=== PATIENT | male | born 1990 | race Caucasian/White ===

== ENCOUNTER 2024-12-23 13:22 | Inpatient (IN) | payer OTHER, SELFPAY ==
[2024-12-23] VITALS (14 sets, daily range): BP systolic 85–142; BP diastolic 68–78; BMI 22.5
[2024-12-23 09:48] LABS: Hematocrit 42.2 % (39.0-52.0); Hemoglobin 14.6 g/dL (13.0-18.0); Mean Corp Hgb Conc. 34.6 g/dL (33.0-37.0); Mean Corpuscular Volume 82.1 fL (80.0-94.0); Nucleated Red Blood Cells % 0 % (-); Platelet Count 163 10^3/uL (130-400); Red Cell Dist. Width 12.6 % (11.5-14.5)
[2024-12-23 09:54] LABS: ALT (SGPT) 35 U/L (0-50); AST (SGOT) 28 U/L (17-59); Albumin 4.2 g/dl (3.5-5.0); Alkaline Phosphatase 54 U/L (38-126); Blood Urea Nitrogen 16 mg/dl (9-20); Calcium 8.9 mg/dl (8.4-10.2); Carbon Dioxide 29 mmol/L (22-30); Chloride 102 mmol/L (98-107); Estimated Creatinine Clearance > 125 ml/min; Glucose 98 mg/dl (70-99); Potassium 3.8 mmol/L (3.5-5.1); Sodium 137 mmol/L (135-145); Total Protein 6.9 g/dl (6.3-8.2); eGFR > 60.00
[2024-12-23 09:57] LABS: COVID-19 Antigen Negative (Negative)
--- NOTE | 2024-12-23 10:04 | ED.GENMED ---
History of Present Illness
<Julio C Obrien MD, Resident - Last Filed: 12/23/24 13:32>
General
Chief Complaint: Dizziness
Source: patient
Exam Limitations: none
Time Seen by Provider: 12/23/24 09:48
Nursing documentation reviewed up to this point in time: agreed with
History of Present Illness
History of Present Illness:
This is a 34-year-old male with history of Lyme disease arrives via EMS from home with complaints of not feeling well. Family reported that he developed flulike symptoms on Sunday which were progressively getting worse and when he woke up today
in the morning he felt lightheaded and family noticed that he was pale. Spouse also informed me that he has been in the bed over the weekend because of the ongoing sinus symptoms and he is complaining of multiple joint pain and tingling in
bilateral arms. Ongoing coughing. Denies any chest pain or trouble breathing. Family believes that he is very tired and lethargic. There was some subjective fever however there is no documented fevers.
Past History
<Julio C Obrien MD, Resident - Last Filed: 12/23/24 13:32>
Past History
ED Past Medical History: Other (Lyme disease)
ED Past Surgical History: None
Patient has exhibited threatening behavior?: No
Social History
Tobacco: Non-smoker
Family History
Family History: Other (Noncontributory)
Review of Systems
<Julio C Obrien MD, Resident - Last Filed: 12/23/24 13:32>
Review of Systems
Constitutional: Reports fever and fatigue; Denies night sweats or chills
EENT: Denies sore throat
Respiratory: Reports cough and trouble breathing
Cardiac: Denies chest pain or palpitations
ABD/GI: Denies abdominal pain or diarrhea
: Denies dysuria
Musculoskeletal: Reports joint pain, muscle pain and back pain
Skin: Denies itching
Neurological: Reports other (Generalized weakness); Denies dizzy
Endocrine: Denies polyuria
Phy Exam
<Julio C Obrien MD, Resident - Last Filed: 12/23/24 13:32>
General Physical Exam
General Presentation: other (Ill-appearing)
General age: appears stated age
General Skin: warm
General Habitus: normal
General Mental: alert
General Hydration: appears well hydrated
Cardiovascular Exam
Cardiovascular Exam: regular rate/rhythm and no murmur
Pulmonary Exam
Pulmonary Exam: lungs clear, no respiratory distress and no wheezing
Gastrointestinal Exam
Gastrointestinal Exam: non tender, soft and non distended
Musculoskeletal Exam
Musculoskeletal Exam: full ROM and neuro vasc intact
Course
<Julio C Obrien MD, Resident - Last Filed: 12/23/24 13:32>
Orders/Labs/Results
Orders:
Orders
12/23/24 09:29
EKG [Electrocardiogram (*1)] Urgent
Reason for Study: Vertigo / Dizzy
EKG- Treatment ONCE
12/23/24 09:34
COVID-19 Antigen Urgent
Source: Nasal Swab
Complete Blood Count/With Diff Urgent
Comprehensive Metabolic Panel Urgent
Creatine Phosphokinase Urgent
Comment: ADD
NT-proBNP Urgent
Comment: ADD
Influenza A+B Rapid Molecular Urgent
LUIS Source: Nasal Swab
Specimen Description:
12/23/24 09:45
Blood Culture Q20M
LUIS Source: Blood/Venous
Specimen Description:
Comment: Urgent from separate sites. If patient screens positive for possible sepsis
CR Chest - 2 Views Urgent
Comment:
Reason For Exam: suspected infection
12/23/24 09:47
Lactic Acid Q4H
Comment: ON ICE, CANCEL 2ND ORDER IF FIRST LACTIC ACID LEVEL <2
Blood Culture Q20M
LUIS Source: Blood/Venous
Specimen Description:
Comment: Urgent from separate sites. If patient screens positive for possible sepsis
12/23/24 09:58
Add On- LAB Urgent
Tests Added?: CPK
Add On- LAB Urgent
Tests Added?: CPK, BNP, TROP
12/23/24 09:59
0.9% Sodium Chloride 1000 ml [Nss] 1,000 ml IV BOLUS
Ketorolac [Toradol] 15 mg IV NOW STA
Ondansetron Injectable [Zofran] 4 mg IV NOW STA
12/23/24 11:57
Oseltamivir Phosphate [Tamiflu] 75 mg PO NOW STA
12/23/24 12:01
NEUROLOGY CONSULT Urgent
Consulting Provider: Coy Castro
Was physician already notified: Yes
12/23/24 12:04
CSF Cell Count Stat
CSF Cell Count Urgent
CSF Tube Number: 1
Comment: Tube #1
Spinal Fluid Glucose Urgent
Spinal Fluid Protein Urgent
CSF Culture with Gram Stain Urgent
LUIS Source: Csf
Specimen Description:
Gram Stain Stat
LUIS Source: Csf
Specimen Description:
Meningitis Panel, CSF by PCR Urgent
LUIS Source: Csf
Specimen Description:
12/23/24 12:06
EKG [Electrocardiogram (*1)] Stat
Reason for Study: Shortness of Breath
12/23/24 12:07
EKG- Treatment ONCE
12/23/24 12:08
CT Chest PE Study Urgent
Comment:
Reason For Exam: sob
12/23/24 13:01
Admit/Transfer Patient As Directed
Co-Sign Provider:
Level of Care: Inpatient admission
Assign to:: Medical/Surgical
Physician / Group: elida
Diagnosis: influenza/Concern for GBS
Reason for Hospitalization: Influenza
conern for GBS
Expected length of stay greater than two midnights?: Yes
ELOS- Estimated Length of Stay in days: 3
I certify the patient meets the requirements for IP care: Yes
12/23/24 13:02
Code Status As Directed
Resuscitation Status: Full Code
PRN Pain Medication Management As Directed
May give lesser potent ordered pain med per pt: Yes
preference::
Protocol:: Medication orders for pain may be administered in a
manner that supports deferring to patient preference
when the pt is:
- Requesting an ordered lesser potent pain medication.
Least to most potent pain medications are defined
as: acetaminophen < NSAID < tramadol < opioids
(morphine, oxycodone, hydromorphone).
- Requesting a lesser dose of the same medication IF
ORDERED.
- Requesting a less intrusive route of administration
if both routes are prescribed by the provider (PO <
IV).
12/23/24 13:12
Lyme PCR, DNA [S] Stat
Lyme Progressive Stat
Urine Culture Reflexed from UA [Urinalysis Reflex To Culture] Stat
Date Specimen was Collected: 12/23/24
Time Specimen was Collected: 13:09
12/23/24 13:17
IRAD CONSULT Urgent
Consulting Provider: Ludin Chang
Was physician already notified: Yes
Procedure being ordered, including laterality if applicable: lumbar puncture
Acknowledgement that appropriate orders are entered: Yes
12/23/24 13:18
CSF VDRL Reflex To Titer [S] Urgent
CSF Tube Number: 4
Myelin Basic Protein, CSF [S] Urgent
Oligoclonal Band Profile [S] Urgent
Abnormal Lab Results
12/23/24
09:34
Absolute Lymphs (auto) 1.0 L 10^3/uL
(1.2-3.4)
Neutrophils % 80.3 H %
(42.2-75.2)
Lymphocytes % 13.1 L %
(20.5-51.1)
12/23/24 09:34
12/23/24 09:34
Vital Signs
Initial and Last Documented VS:
Initial Vital Signs
Temp Pulse Resp BP Pulse Ox
97.6 F 67 14 133/76 100
12/23/24 09:23 12/23/24 09:23 12/23/24 09:23 12/23/24 09:23 12/23/24 09:23
Last Documented Vital Signs
Temp Pulse Resp BP Pulse Ox
98.9 F 79 20 142/77 98
12/23/24 13:25 12/23/24 13:25 12/23/24 13:25 12/23/24 13:25 12/23/24 13:25
<Varghese Ramey MD - Last Filed: 12/23/24 13:15>
Orders/Labs/Results
Orders:
Orders
12/23/24 09:29
EKG [Electrocardiogram (*1)] Urgent
Reason for Study: Vertigo / Dizzy
EKG- Treatment ONCE
12/23/24 09:34
COVID-19 Antigen Urgent
Source: Nasal Swab
Complete Blood Count/With Diff Urgent
Comprehensive Metabolic Panel Urgent
Creatine Phosphokinase Urgent
Comment: ADD
NT-proBNP Urgent
Comment: ADD
Influenza A+B Rapid Molecular Urgent
LUIS Source: Nasal Swab
Specimen Description:
12/23/24 09:45
Blood Culture Q20M
LUIS Source: Blood/Venous
Specimen Description:
Comment: Urgent from separate sites. If patient screens positive for possible sepsis
CR Chest - 2 Views Urgent
Comment:
Reason For Exam: suspected infection
12/23/24 09:47
Lactic Acid Q4H
Comment: ON ICE, CANCEL 2ND ORDER IF FIRST LACTIC ACID LEVEL <2
Blood Culture Q20M
LUIS Source: Blood/Venous
Specimen Description:
Comment: Urgent from separate sites. If patient screens positive for possible sepsis
12/23/24 09:58
Add On- LAB Urgent
Tests Added?: CPK
Add On- LAB Urgent
Tests Added?: CPK, BNP, TROP
12/23/24 09:59
0.9% Sodium Chloride 1000 ml [Nss] 1,000 ml IV BOLUS
Ketorolac [Toradol] 15 mg IV NOW STA
Ondansetron Injectable [Zofran] 4 mg IV NOW STA
12/23/24 11:57
Oseltamivir Phosphate [Tamiflu] 75 mg PO NOW STA
12/23/24 12:01
NEUROLOGY CONSULT Urgent
Consulting Provider: Coy Castro
Was physician already notified: Yes
12/23/24 12:04
CSF Cell Count Stat
CSF Cell Count Urgent
CSF Tube Number: 1
Comment: Tube #1
Spinal Fluid Glucose Urgent
Spinal Fluid Protein Urgent
CSF Culture with Gram Stain Urgent
LUIS Source: Csf
Specimen Description:
Gram Stain Stat
LUIS Source: Csf
Specimen Description:
Meningitis Panel, CSF by PCR Urgent
LUIS Source: Csf
Specimen Description:
12/23/24 12:06
EKG [Electrocardiogram (*1)] Stat
Reason for Study: Shortness of Breath
12/23/24 12:07
EKG- Treatment ONCE
12/23/24 12:08
CT Chest PE Study Urgent
Comment:
Reason For Exam: sob
12/23/24 13:01
Admit/Transfer Patient As Directed
Co-Sign Provider:
Level of Care: Inpatient admission
Assign to:: Medical/Surgical
Physician / Group: elida
Diagnosis: influenza/Concern for GBS
Reason for Hospitalization: Influenza
conern for GBS
Expected length of stay greater than two midnights?: Yes
ELOS- Estimated Length of Stay in days: 3
I certify the patient meets the requirements for IP care: Yes
12/23/24 13:02
Code Status As Directed
Resuscitation Status: Full Code
PRN Pain Medication Management As Directed
May give lesser potent ordered pain med per pt: Yes
preference::
Protocol:: Medication orders for pain may be administered in a
manner that supports deferring to patient preference
when the pt is:
- Requesting an ordered lesser potent pain medication.
Least to most potent pain medications are defined
as: acetaminophen < NSAID < tramadol < opioids
(morphine, oxycodone, hydromorphone).
- Requesting a lesser dose of the same medication IF
ORDERED.
- Requesting a less intrusive route of administration
if both routes are prescribed by the provider (PO <
IV).
12/23/24 13:12
Lyme PCR, DNA [S] Stat
Lyme Progressive Stat
Urine Culture Reflexed from UA [Urinalysis Reflex To Culture] Stat
Date Specimen was Collected: 12/23/24
Time Specimen was Collected: 13:09
12/23/24 13:17
IRAD CONSULT Urgent
Consulting Provider: Ludin Chang
Was physician already notified: Yes
Procedure being ordered, including laterality if applicable: lumbar puncture
Acknowledgement that appropriate orders are entered: Yes
12/23/24 13:18
CSF VDRL Reflex To Titer [S] Urgent
CSF Tube Number: 4
Myelin Basic Protein, CSF [S] Urgent
Oligoclonal Band Profile [S] Urgent
Abnormal Lab Results
12/23/24
09:34
Absolute Lymphs (auto) 1.0 L 10^3/uL
(1.2-3.4)
Neutrophils % 80.3 H %
(42.2-75.2)
Lymphocytes % 13.1 L %
(20.5-51.1)
12/23/24 09:34
12/23/24 09:34
Vital Signs
Initial and Last Documented VS:
Initial Vital Signs
Temp Pulse Resp BP Pulse Ox
97.6 F 67 14 133/76 100
12/23/24 09:23 12/23/24 09:23 12/23/24 09:23 12/23/24 09:23 12/23/24 09:23
Last Documented Vital Signs
Temp Pulse Resp BP Pulse Ox
98.9 F 79 20 142/77 98
12/23/24 13:25 12/23/24 13:25 12/23/24 13:25 12/23/24 13:25 12/23/24 13:25
<Julio C Obrien MD, Resident - Last Filed: 12/23/24 13:32>
MDM/Problems Addressed
Differential Diagnosis Includes:
Respiratory infection viral versus bacterial,
MDM/Problems Addressed:
Vitals are stable
EKG with normal sinus rhythm.
COVID-negative
Influenza A positive
CBC with normal white count and hemoglobin
CMP within normal limits
Check troponin proBNP and CPK
Check blood culture
Check lactic acid
Check chest x-ray
1 L IV normal saline bolus
1 dose of Zofran 4 mg
1 dose of IV Toradol 15 mg
update:
Lactic acid within normal limits
Creatinine kinase within normal limits
proBNP, blood culture pending
Chest x-ray with no acute cardiopulmonary disease process
Discussed in length with patient and family regarding the use of Tamiflu that it is not recommended given his symptoms started 4 to 5 days ago.
update:
proBNP negative
Results reviewed with the patient. Patient feeling slightly better after Toradol and IV fluids. Discussed the course of influenza and supportive measures as a treatment. They verified understanding. Patient and family requested for discharge
home.
Return precautions reviewed.
Update: When patient was about to leave he could not walk and required 3 people to help him stand up. Patient was taken back to the emergency room. Lengthy discussion regarding the course of viral illness patient adamant of going home with the
family convinced him to stay in the hospital for monitoring. At this time he feels very weak and stated he cannot walk or get up on his own.
Start Tamiflu
Will admit for further care.
will consult neuro in the mean time as there is a concern for Guillain-Graf�
Patient SOB and tachy.
check stat EKG; repeat EKG with sinus rhythm
will get CT PE study urgent
update:Per nurse patient had 1 episode of hemoptysis as well
HR now back in 70s
update:
CT PE negative
neuro believes it is GBS and recommended LP with [facility]
hospitalist updated
<Julio C Obrien MD, Resident - Last Filed: 12/23/24 13:32>
*Pulse Oximetry
SaO2: 100
Oxygen Mode of Delivery: Room air
Patient hypoxic: no
*Critical Care Note
Total Time (30-74mins, 75-104mins- exclusive of procedures): Not Applicable
ED Attending Note
<Julio C Obrien MD, Resident - Last Filed: 12/23/24 13:32>
-
Portions of this chart may have been created with voice recognition software.� Occasional wrong word or��sound alike� substitutions may have occurred due to the inherent limitations of voice recognition software.
<Varghese Ramey MD - Last Filed: 12/23/24 13:15>
ED Attending Note
Patient seen and examined by attending physician: Yes
I performed a history and physical exam of patient and discussed management with resident, I reviewed resident's note and agree with documented findings and plan of care.: Yes
ED Attending Note:
I have seen and evaluated the patient with a [id number] encounter. I have spoken to the resident and involved in the medical history, the physical exam, medical decision making.
Evaluation and management service: agree unless noted differently below.
Results interpretation: agree unless noted differently below.
Focused HPI: 34-year-old male with a history of Lyme's disease presents to the ER for evaluation of flulike illness. Patient reports that he has been sick since Sunday evening symptoms have been constant. He reports generalized malaise and
tremendous fatigue. He reports hacking cough. He has severe myalgias and arthralgias. Reports fever and chills. No diarrhea or vomiting reported. Came to the ER for evaluation.
Physical exam: Awake and alert. He appears unwell. Vital signs are normal. No cardiac rubs gallops or murmurs. Lungs scattered wheezing, hacking cough. Mucous membranes generally moist. No notable joint effusions, no edema in the extremities,
good pulses throughout.
Medical Decision Makin-year-old male presents with flulike illness. He is positive for influenza A today. Labs sent off including a CBC and a CMP which showed no clinically significant abnormalities. CPK normal. Chest x-ray shows no
pneumonia. EKG shows sinus rhythm. Given fluids and Toradol with some improvement but patient still having profound weakness. He is requiring 3 person assist to even sit up in bed and cannot stand up to walk due to profound muscle weakness and
bodyaches. Will admit for continued management at this point given profound weakness I think Guillain-Graf� may need to be considered. Discussed with neurology for assessment. Will admit to hospitalist service.
Patient becoming increasingly tachycardic and is complaining of shortness of breath. He did have some mild hemoptysis earlier. Repeat EKG. Will check CT chest. I spoke to neurology who will come to bedside. Continue to monitor.
CT chest shows no PE. Heart rate has improved after an initial spike of sinus tachycardia on the monitor. 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 Recommending lumbar puncture.
Discussed with interventional radiology and studies were ordered. Case was admitted to the hospitalist service for further care.
Discharge Plan
Departure
Patient Disposition: Admit
Date of Disposition: 12/23/24
Time of Disposition: 11:33
Presentation/result/management discussed w/ accepting MD/DO: Hospitalist
Patient with high blood pressure during this ER visit?: Yes
Condition: Fair
Discharge Problem:
Influenza A
Interventions
Interventions:
*Risk Screen - Suicide Last Done: 12/23/24 09:23
*General Assessment Last Done: 12/23/24 09:23
*Neglect/Abuse Screening Last Done: 12/23/24 09:58
*ED- Fall Risk Assessment Last Done: 12/23/24 09:58
*ED COVID-19 Vaccine History Last Done: 12/23/24 09:23
ED- Neurological Assessment Last Done: 12/23/24 09:58
ED- Cardiac Assessment Last Done: 12/23/24 09:58
ED Swallowing Screen Last Done: 12/23/24 09:58
[2024-12-23] MEDS: ZOFRAN 4 MG IV (10:05)
[2024-12-23] MEDS: NSS 1000 IV ×3 (10:05→23:50)
[2024-12-23] MEDS: TORADOL 15 MG IV (10:05)
--- NOTE | 2024-12-23 12:27 | HPS.HSE ---
Addendum entered and electronically signed by Keysha Martines MD 12/23/24 15:42:
34-year-old male with history of Lyme disease who presents with fevers, chills, weakness and fatigue, difficulty ambulating, and pain of multiple joints, as well as excruciating neck pain. His family was at bedside and notes that he is normally
very physically active. He complains of pain with urination. He notes that over 2 weeks ago he took a 5-day steroid course for swelling in his left knee.
In the ED he tested flu A positive. his [id number] son is sick with fevers and ear infections, which he may have contracted from daycare. He denies any other sick contacts.
He has been seen by neurology who was concerned for GBS.
On exam patient is febrile to 103.5, other VSS. He has a cough.
Patient complains of pain with any physical movement during the exam.
Patient appears to be in distress from neck pain, EOMI, PERRLA, anicteric, MMM, heart RRR, no murmur, lungs CTAB, abdomen soft/NT/ND/NABS, cranial nerves tested and intact, 4-5 out of 5 strength in bilateral arms, 3 out of 5 strength in bilateral
legs.
LP performed in radiology.
CT performed to rule out PE
Neurology consulted
Concern for GBS
IVIG
Meningitis and Lyme panels
Hold off empiric antibiotic
IVF
Antipyretics PRN
Original Note:
Family Physician
-
Family Physician: Kory Marks
Chief Complaint
-
fever,chills, KOWALSKI
History of Present Illness
84-year-old with past medical history for Lyme disease presented to us with fever, chills, headaches, generalized body ache since Sunday. Patient had a temp of 101 at home. Patient complained of lightheaded. Patient was extremely tired since
Sunday and was sleeping more than usual. Patient also complained of cough with brownish sputum. Today he woke up with upper back pain between the shoulder blade. He was having trouble breathing. Denied any syncopal episode. Denied any
abdominal pain, nausea, vomiting or diarrhea. Patient also noted burning with urination.
two week ago he was noted swollen leg. he works outside as a construction project engineer. [place] he was tested negative for lyme disease and he finished the course of steroids and with some improvement in his knee pain.
Patient was tested positive for influenza. Admitting for further management.
Medical History
Past Medical History
Past Medical History: Reports Other
Additional Past Medical History:
Lyme disease
Past Surgical History: Reports None
Social History
Tobacco: Former Smoker
Alcohol: Occasional
Drug: None
Personal:
Living: With Family
Family History
Family History: Not pertinent
Allergies / Home Medications
Allergies reflects when Allergies were last updated in [facility].
Home Medications with original date entered in [facility]
Allergy/Medication List:
Allergies
Allergy/AdvReac Type Severity Reaction Status Date / Time
No Known Allergies Allergy Unverified 06/29/10 20:04
Home Medications
No Meds [No Current Medications] 12/23/24
Review of Systems
-
Constitutional: Reports Fever, Fatigue and Chills
EENT: Reports Sore Throat
Respiratory: Reports Cough and Trouble Breathing
Cardiac: Reports Chest Pain
Abdomen/GI: Reports No Symptoms
: Reports Dysuria
Musculoskeletal: Reports Joint Pain
Skin: Reports No Symptoms
Neurological: Reports Headache and Weakness
Endocrine: Reports No Symptoms
Hematologic/Lymphatic: Reports No Symptoms
Psych: Reports No Symptoms
Physical Exam
Vital Signs
Vital Signs
Temp Pulse Resp BP Pulse Ox
98.3 F 71 20 127/75 100
12/23/24 09:58 12/23/24 09:58 12/23/24 09:58 12/23/24 09:58 12/23/24 10:04
Physical Exam
General: Well Developed, Well Nourished and No Apparent Distress
HEENT: NormoCephalic, Moist mucous membranes and Atraumatic
Respiratory: Clear
Cardiac: S1/S2 and Regular Rhythm; No Murmur or Rub
GI: Soft, Non Tender, Non Distended and Normal Bowel Sounds; No Organomegaly
Rectal: Deferred by Provider
Musculoskeletal: No Clubbing, No Cyanosis and Other (left knee edema)
Skin: No Rash
Neuro: AO x 3 and Nonfocal/grossly intact
Psych: Calm
Laboratory Results
-
12/23/24 09:34
12/23/24 09:34
Laboratory Results
Lactic Acid Cancelled 12/23/24 13:45
Total Bilirubin 0.5 mg/dl (0.2-1.3) 12/23/24 09:34
AST 28 U/L (17-59) 12/23/24 09:34
ALT 35 U/L (0-50) 12/23/24 09:34
Alkaline Phosphatase 54 U/L (38-126) 12/23/24 09:34
Troponin I Cancelled 12/23/24 10:01
Data Reviewed
-
Diagnostic Radiology: Report Reviewed by me
CT Scan: Report Reviewed by me
Lab Data: Labs Reviewed by me
Impression/Plan
-
# Generalized weakness secondary to flu/concern for GBS
-refused TamiFlu
- ER physician to perform LP
- Neurology following patient
- Tylenol as needed for fever
- PT/OT consulted
- Chest x-ray negative
- COVID-negative
-obtain blood culture, meningitis panel,lyme panel
# Short of breath/tachycardia concern for PE
- CT negative for PE. no CT evidence of pulmonary embolism.There is patchy minimal airspace disease in the left upper lobe. Etiology is uncertain but this is likely atelectasis
- oxygenating very well on RA
-encourage IS, acapella
#DVT prophylaxis
-Lovenox
#CODE status
-full code
--- NOTE | 2024-12-23 12:37 | CON.NEURO ---
Addendum entered and electronically signed by Coy Castro MD 12/23/24 15:41:
Studies reviewed.
I have personally examined the patient. I reviewed and agree with the COUNTY [facility] DEMONSTRATION AGENT's Note.
My addenda:
Awake, alert, interactive. No acute distress.
Speech intact. Somatic.
Follows 2-step requests w/o difficulty. No tremor.
Extra-ocular movements grossly intact.
Facial movements full and symmetric. Hearing intact to normal conversational volume.
Normal UE movements bilaterally.
Neck: full ROM.
Chest: no dyspnea
Heart: no JVD
Ext: (-) Clubbing, (-) Cyanosis, (-) Edema
IMPRESSIONS/RECOMMENDATIONS:
Abrupt onset of bilateral lower extremity weakness
Most likely secondary to acute onset of motor greater than sensory neuropathy which can be best explained by virally induced Guillain-Graf� syndrome in a patient with a newly diagnosed influenza especially in light of hyporeflexia and intact bladder
and bowel control
Check lumbar puncture for albumin�cytology disassociation
Check EMG
Start immunoglobulin presumably for a 5-day course
No indication for high-dose steroids at this time
Check blood work for other metabolic abnormalities producing symptoms
D/W patient / family / nursing
All questions answered.
Will continue to follow patient.
Original Note:
Neuro Assessment/Plan
Assessment
This is a 34-year-old male with history of Lyme disease presented to [facility] on 12/23/2024 via EMS from home with complaints joint paint and lower extremity weakness.
Chest CT: There is no CT evidence of pulmonary embolism. There is patchy minimal airspace disease in the left upper lobe. Etiology is uncertain but this is likely atelectasis
Labs: +Flu A
CSF: pending
EMG: pending
Plan
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
-consult IRAD for LP
-EMG/NCS
-start IVIG
-DVT prophylaxis
-PT/OT evaluations when able
All questions encouraged and answered, plan of care discussed with Dr. Castro, hospitalist, nurse, patient and family
Consultation
Order
Date of Consultation: 12/23/24
Requesting Provider: hospitalist
Reason for Consult: lower extremity weakness
Subjective/Objective
Subjective Data
Date of Service: December 23, 2024
This is a 34-year-old male with history of Lyme disease presented to [facility] on 12/23/2024 via EMS from home with complaints of not feeling well. He started to have bilateral knee pain 2 weeks ago, he was given steroids which initially helped his knee
pain. He developed flu-like symptoms on Sunday which were progressively getting worse. On Sunday was unable to lift his lower extremities. When he woke up today in the morning he felt lightheaded and family noticed that he was pale. Today, he
noticed pain in his back and joints were worse and he noted difficulty breathing which prompted his ER visit. Currently he is unable to lift lower extremities with photosensitivity. He notes difficulty lifting upper extremities but not as severe as
lower. Endorses pain throughout entire body and all joints. He also notes headache and lethargy. On exam, he has trace reflexes to lower extremities. +2 reflexes in upper extremities. Negative collier bilaterally. Lower extremity weakness present.
Ongoing coughing. Denies issues chewing or swallowing. Denies issues with bladder/bowel. Chest xray unremarkable, chest CT showed no evidence of pulmonary embolism, there is patchy minimal airspace disease in the left upper lobe. Labs positive for
influenza A. T max 103.5.
Objective Data
Vital Signs
Temp Pulse Resp BP Pulse Ox
98.3 F 71 20 127/75 100
12/23/24 09:58 12/23/24 09:58 12/23/24 09:58 12/23/24 09:58 12/23/24 10:04
Lab Results
12/23/24 09:34
12/23/24 09:34
Sodium 137 mmol/L (135-145) 12/23/24 09:34
Potassium 3.8 mmol/L (3.5-5.1) 12/23/24 09:34
BUN 16 mg/dl (9-20) 12/23/24 09:34
Glucose 98 mg/dl (70-99) 12/23/24 09:34
Calcium 8.9 mg/dl (8.4-10.2) 12/23/24 09:34
Ywe-I-Drxgfwuutip Pept < 20.0 pg/ml 12/23/24 09:34
Patient Allergies
No Known Allergies Allergy (Unverified 06/29/10 20:04)
Physical Exam
-
General: Appears in Distress
HEENT: Normocephalic, Atraumatic and Anicteric
Neck: Limited Range of Motion
Respiratory: No Dyspnea
Cardiac: No JVD
GI: Non-distended
Skin: Unremarkable
Extremities: No Clubbing
Psych: Anxious
Extended Neurological Exam
Mood & Affect: Anxious
Attention Span & Concentration: Awake, Alert, Interactive and No Difficulty with 2 Step Request
Memory: Unremarkable
Tremor: Hand Tremor Absent and Head Tremor Absent
Speech: Quality Unremarkable, Quantity Unremarkable and Rate of Production Unremarkable
Cranial Nerve II: Left Eye: Visual Cross Intact
Cranial Nerve II: Right Eye: Visual Corss Intact
Cranial Nerves III, IV, : Extraocular Movement: Extraocular Movement Full in all Directions
Cranial Nerve VII: Facial Symmetry: Normal Facial Symmetry
Cranial Nerve VIII: Hearing: Unremarkable Hearing to Normal Conversational Volume
Muscle Strength, Overall: Reduced Throughout (severely reduced lower extremities bilaterally)
Deep Tendon Reflexes: Trace (lower extremities)
Coordination: Paqorb-hhtq-sbrsbn Testing Unremarkable
Medications
-
Home Medications
�Medication �Instructions �Recorded
No Meds [No Current Medications] 12/23/24
--- NOTE | 2024-12-23 13:30 | EDRN ---
this RN gave verbal report to Geovanna from IR
[2024-12-23 13:59] LABS: Urine Character Clear (Clear)
[2024-12-23 14:34] LABS: Urine Squamous Cell 16-20 /LPF (Few); Urine Urothelial Cell 0-2 /LPF (FEW)
[2024-12-23 14:36] LABS: Urine Red Blood Cell 0-2 /HPF (0-2); Urine White Cell 0-2 /HPF (0-5)
[2024-12-23] MEDS: TYLENOL 1000 MG PO (14:42)
[2024-12-23 15:39] LABS: CSF Color Colorless
[2024-12-23 15:40] LABS: Red Cell Count/CSF 106 mm^3; White Cell Count/CSF 1 mm^3 (0-5)
[2024-12-23 16:35] LABS: CSF Color Other
[2024-12-23 16:36] LABS: CSF Tube # Clarity Turbid; Red Cell Count/CSF 2493 mm^3; White Blood Cell Count/CSF 4 mm^3 (0-5)
[2024-12-23] MEDS: GAMMAGARD 50 IV (16:45)
[2024-12-23] MEDS: THIAMINE INJECTION 100 MG IV (17:34)
[2024-12-23] MEDS: ULTRAM 50 MG PO (17:47)
[2024-12-23] MEDS: GAMMAGARD 300 IV (18:04)
[2024-12-23] MEDS: TYLENOL 650 MG PO (18:44)
--- NOTE | 2024-12-23 19:41 | PTCARENOTE ---
notified house TIEN of findings, up to assess, family updated
--- NOTE | 2024-12-23 19:49 | W.PN.UPDATE ---
Update Note
Progress Note Update
TT by RN to see patient, concern for worsening symptoms. Patient evaluated, patient only able to lift arms slightly off bed for a second or two then drops immediately. Respirations are diminished, coughing with oral intake. Per report, these
symptoms are worse then when admitted to floor. Continues with temperature 101.6, after administration of Tylenol. Other vital signs stable at this time. High concern for worsening respiratory status and continued decline. Discussed with nocturinist
and ICU CAR USHER, will transfer to ICU for closer monitoring and higher level of care.
--- NOTE | 2024-12-23 20:16 | PTCARENOTE ---
Report given to MEDICAL BILLING ASSOCIATE, transported to ICU
[2024-12-23 20:27] LABS: Glucose - Point of Care 96 mg/dl (70-99)
[2024-12-23] MEDS: LOVENOX 40 MG SC (22:40)
--- NOTE | 2024-12-23 22:57 | PTCARENOTE ---
pt ungraded from the floor around 1999, +flu, pt with increased weakness and shallow breathing, floor FREIGHT LOADER, ICU FREIGHT LOADER and respiratory at the bedside. pt AAOx3, denies SOB but shallow breathing noted, with deep breath pt coughs and at times with thick villatoro
sputum, pt placed on high flow 50L 35%, SR on the monitor, reg diet, passed bedside swallow, condom cath applied, at bedside and call ortega in reach
[2024-12-24] VITALS (27 sets, daily range): BP systolic 109–135; BP diastolic 69–92; BMI 24.8
--- NOTE | 2024-12-24 01:48 | PTCARENOTE ---
no changes from prior assessment pt states 'feels better on the oxygen', remains at bedside, call ortega in reach
[2024-12-24] MEDS: TYLENOL 650 MG PO ×3 (03:05→18:00)
[2024-12-24 04:13] LABS: Hematocrit 38.4 % (39.0-52.0); Hemoglobin 13.3 g/dL (13.0-18.0); Mean Corp Hgb Conc. 34.6 g/dL (33.0-37.0); Mean Corpuscular Volume 81.7 fL (80.0-94.0); Nucleated Red Blood Cells % 0 % (-); Platelet Count 143 10^3/uL (130-400); Red Cell Dist. Width 12.7 % (11.5-14.5)
[2024-12-24 04:34] LABS: ALT (SGPT) 27 U/L (0-50); AST (SGOT) 26 U/L (17-59); Albumin 3.5 g/dl (3.5-5.0); Alkaline Phosphatase 49 U/L (38-126); Blood Urea Nitrogen 11 mg/dl (9-20); Calcium 8.0 mg/dl (8.4-10.2); Carbon Dioxide 24 mmol/L (22-30); Chloride 105 mmol/L (98-107); Estimated Creatinine Clearance > 125 ml/min; Glucose 99 mg/dl (70-99); Potassium 3.4 mmol/L (3.5-5.1); Sodium 134 mmol/L (135-145); Total Protein 6.5 g/dl (6.3-8.2); eGFR > 60.00
[2024-12-24] MEDS: KCL 270 MEQ IV (06:15)
--- NOTE | 2024-12-24 07:42 | W.PN.HOSP.TC ---
Today's Communication/Plan
-
MRI with contrast
IV Immunoglobin started for 5b days.
EMG ordered
speech therapy evaluation ordered
Lumbar puncture:
CSF analysis- no gram stain, viral growth
AFB stain pending
cbc, cmp pending
Flu positive.
Assessment / Plan
Assessment / Plan
34 yrs old Male with k/c/o lymes disease in the past presented with weakness of the lower limb
# Progressively increase in muscle weakness due to viral/ lyme's disease etiology:
-The nature of weakness is progressively increase from lower limb to upper limb involving neck muscles, along with fever, inflammation suspicious for infection source.
- Creatinine Kinase is 82 within normal range.
- CRP 69 inflammatory marker is high.
- Serum Potassium 3.4 , Sodium 134 levels are low.
-Lumbar puncture, CSF analysis- no gram stain, viral growth indicates to rule out meningitis.
-AFB stain pending status
- MRI Scan is placed to find out the source of inflammation.
-IV Immunoglobin started for 5 days ( DAY 2) to stabilize the patient after consulting Neurologist.
-EMG ordered to rule out peripheral causes for the weakness like guillain-barre syndrome, tick bite induced, transverse myelitis
-Consulted speech therapy evaluation, OT, PT for tomorrow.
DVT prophylaxis: Lovenax
Anticipated Discharge: > 48 hours
Subjective/Interval History
-
Date of Service: December 24, 2024
History obtained from the patient and his mom at bedside.
- patient mentioned ' I feel like tiredness, locked up joint, chest pain while on breathing'. associated with on and off cough, But denies dysphagia, or difficulty in chewing.
-with a history of Lyme disease, diagnosed two weeks ago, and recently completed a course of Doxycycline. He experienced weakness, fever, and chills. Initially, he thought it was a flare-up of his Lyme disease, which typically occurs when he becomes
ill. However, this time the symptoms were severe, beginning with a sore throat, followed by multiple joint pains that left him unable to get out of bed. He also experienced breathing difficulties and dizziness, prompting him to come to the hospital.
He had recent sick contact with his [id number] son, (who presented with bilateral ear pain and cold symptoms and attends daycare.)
-weakness started from lower limb and progressively increasing to upper limb.
- Pt didnt receive meningococcal vaccine when he was around teenage.
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
Objective Data
-
Labs:
12/24/24 03:56
12/24/24 03:56
Laboratory Results
PT 15.6 Sec (11.4-14.6) H 12/24/24 09:29
INR 1.19 12/24/24 09:29
APTT 44.1 Sec (23.4-35.0) H 12/24/24 09:29
pH 7.54 (7.35-7.45) H 12/24/24 10:12
pCO2 27 mmHg (35-48) L 12/24/24 10:12
pO2 154 mmHg (83-108) H 12/24/24 10:12
HCO3 23.1 mmol/L (21-28) 12/24/24 10:12
Lactic Acid Cancelled 12/23/24 13:45
Total Bilirubin 0.5 mg/dl (0.2-1.3) 12/24/24 03:56
AST 26 U/L (17-59) 12/24/24 03:56
ALT 27 U/L (0-50) 12/24/24 03:56
Alkaline Phosphatase 49 U/L (38-126) 12/24/24 03:56
Troponin I Cancelled 12/23/24 10:01
Laboratory Results
12/24/24
03:56
WBC 7.1
Hgb 13.3
Hct 38.4 L
Plt Count 143
Sodium 134 L
Potassium 3.4 L
Chloride 105
Carbon Dioxide 24
BUN 11
Creatinine 0.8
Glucose 99
Calcium 8.0 L
Total Bilirubin 0.5
AST 26
ALT 27
Alkaline Phosphatase 49
Vital Signs:
Vital Signs
Temp Pulse Resp BP Pulse Ox
98.7 F 65 15 128/69 99
12/24/24 07:12 12/24/24 06:15 12/24/24 06:15 12/24/24 06:00 12/24/24 06:15
I&O
12/23/24 12/24/24 12/25/24
06:59 06:59 06:59
Output Total 850 / 850
Balance -850 / -850
Review of Systems
-
History Source: Patient and Family
Constitutional: Reports Fever and Fatigue
Respiratory: Reports Trouble Breathing (increase work of breathing by involving secondary respiratory muscles. )
Cardiac: Reports Chest Pain (occurs because of breathing.)
Abdomen/GI: Reports No Symptoms
Genitourinary: Reports No Symptoms
Musculoskeletal: Reports Muscle Weakness
Neuro: Reports No Symptoms
Endocrine: Reports No Symptoms
Hematologic / Lymphatic: Reports No Symptoms
Allergy / Immunology: Reports Other (lymes disease positive. )
Physical Exam
-
General: Appears in Distress and Other ( Saturation 97% with 50 LITERS ON 30%FiO2)
HEENT: Moist Mucous Membranes
Respiratory: Accessory Resp Muscle Use
Cardiac: Regular Rhythm and S1/S2
GI: Soft and Nontender
Genito-urinary: No Costovertebral Tender and Yates
Skin: Warm
Neuro: AO x 3 and DTR's Intact & Symmetrica (B/L hyporeflexia on the upper and lower limbs. Strength = 2/5 hypotonia in upper and lower extremities.)
Hematologic / Lymphatic: No Lymphadenopathy
Psych: Calm
--- NOTE | 2024-12-24 08:00 | CON.INTV ---
Consultation
Consultation Request
Date/Time Consultation Requested: December 24, 2024
Date/Time Consultation Performed: December 24, 2024
Medical History
-
Chief Complaint: flu-like symptoms, dizziness, fatigue
History of Present Illness:
34 yo M PMH of lyme disease who presented to ED via EMS with flu-like symptoms, pallor, dizziness, joint pain. Since he was a teenager, he experiences significant fatigue, weakness in setting of illneseses. However, this time, his and mother
noticed additional pallor, which prompted them to call for EMS.
In the ED, initial VS were temperature of 97.6, HR 67, BP 127/75, and RR of 14. Studies n/f positive Flu A test, WBC of 7.9. Electrolytes were within normal limits. He was preparing to leave the ED for home, but experienced worsening fatigue and was
unable to stand up and required support. He was then admitted.
Yesterday evening, there was concern for respiratory distress, increased work of breathing and he was transferred to the ICU for further management.
This AM, he is fatigued with increased work of breathing and occasionally coughing. He is on HFNC 50L, 35%FiO2. He endorsed back pain and joint pain.
Medical History
Past Medical History
Past Medical History: Reports Other
Additional Past Medical History:
Lyme disease
Past Surgical History: Reports None
Social History
Tobacco: Former Smoker
Alcohol: Occasional
Drug: None
Personal:
Living: With Family
Allergies / Home Medications
Allergies
Allergy/AdvReac Type Severity Reaction Status Date / Time
No Known Allergies Allergy Unverified 06/29/10 20:04
Home Medications
�Medication �Instructions �Recorded �Confirmed �Last Taken �Type
ascorbic acid (vitamin C) 500 mg 500 mg PO DAILY Supplement 12/23/24 12/23/24 Unknown History
tablet (Vitamin C)
glucosamine sulfate 500 mg tablet 500 mg PO DAILY Supplement 12/23/24 12/23/24 Unknown History
(Glucosamine)
lysine 500 mg tablet 500 mg PO DAILY Supplement 12/23/24 12/23/24 Unknown History
Review of Systems
-
History Source: Patient and Family
Constitutional: Fatigue
Respiratory: Cough and Trouble Breathing
Cardiac: No Symptoms
Abdomen/GI: No Symptoms
: No Symptoms
Musculoskeletal: Joint Pain
Skin: No Symptoms
Neuro: Dizzy and Weakness
Endocrine: No Symptoms
Hematologic/Lymphatic: No Symptoms
Vitals / Labs / Diagnostic Testing
Vital Signs
Temp Pulse Resp BP Pulse Ox
100.6 F H 67 17 126/84 98
12/24/24 11:00 12/24/24 11:15 12/24/24 11:15 12/24/24 11:00 12/24/24 11:20
Lab Data
12/24/24 03:56
12/24/24 03:56
Laboratory Results
12/24/24 12/24/24
09:29 10:12
PT 15.6 H
INR 1.19
APTT 44.1 H
pH 7.54 H
pCO2 27 L
pO2 154 H
HCO3 23.1
O2 Delivery Level
WBC 7.1
gb 13.3
Na+ 134
K+ 3.4
Ca2+ 8.0
CRP 69.60
ABG
7.54/27/154
CSF studies tube 4
WBC count 1
RBC count 106
Total protein 43
Glucose 54
Other CSF studies are pending
Microbiology
12/23/24 09:47 Blood/Venous Blood Culture - Preliminary
No Growth in 24 hours- Final report to follow
12/23/24 14:39 Csf CSF Culture - Preliminary
No Growth After 18-24 Hours
12/23/24 14:39 Csf Gram Stain - Preliminary
12/23/24 14:39 Csf Meningitis/Encephalitis Panel (PCR) - Final
12/23/24 09:34 Nasal Swab Influenza Types A & B (MATHTEW) - Final
Influenza A Positive, NAAT
Diagnostic Testing:
12/23/2024 CT chest with contrast
IMPRESSION:
There is no CT evidence of pulmonary embolism.
There is patchy minimal airspace disease in the left upper lobe. Etiology is uncertain but this is likely atelectasis
Physical Exam
-
HEENT: Normocephalic
Cardiovascular: S1/S2, Regular Rhythm and Murmur (no murmurs)
Respiratory: Clear and Accessory Resp Muscle Use
GI: Non Tender
Neurology: Awake and Alert
Skin: Warm and Dry
General: Respiratory Distress
Exam:
Motor strength grossly weak in arms/legs
Yates in place
Assessment
-
34 yo M PMH of lyme disease presenting with Flu A pneumonia and generalized weakness concerning for possible GBS
# Flu A pneumonia
- on HFNC, saturation 99%
- increased work of breathing, but ABG showing respiratory alkalosis is reassuring against respiratory muscle fatigue
- Continue HFNC, can remove or switch to MRI compatible respiratory therapy when undergoing MRI.
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
- Rapid onset of weakness i/s/o infection
- The body aches, fever are consistent with inflammatory state.
- However, CSF studies presently do not show albuminocytologic dissociation. 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
- Neurology recommends MRI cervical and thoracic spine to evaluate for possible transverse myelitis; based on MRI findings, steroids may be considered
- Neurology recommends EMG
- Continue IVIG
- f/u CSF studies
- f/u neurology recommendations, PT/OT/ST evaluations
# Disposition
- NS 100mL/hr fluids
- DVT ppx lovenox
Data Reviewed
-
EKG: Report reviewed by me
Radiology: Report reviewed by me
CT Scan: Report reviewed by me
[2024-12-24] MEDS: THIAMINE INJECTION 100 MG IV (08:24)
--- NOTE | 2024-12-24 09:21 | PTCARENOTE ---
recd pt [id number] see assessment as documented, family bedside. hand swollen, wedding ring removed with tourniquet and lubricant, given to family. Seen by neuro and ICU team. IV fluids infusing. family updated bedside with plans and expectation.
Active ROM x 4 extremities, ankles exercised and family involved to encourage mobility/gentle ROM.
--- NOTE | 2024-12-24 09:48 | RESPNOTE ---
Respiratory: Vital Capacity 1.7 L and NIF -[id number] with good patient effort.
[2024-12-24 09:51] LABS: INR 1.19; PT 15.6 Sec (11.4-14.6)
[2024-12-24 09:53] LABS: APTT 44.1 Sec (23.4-35.0)
[2024-12-24 10:19] LABS: B.E. 1.9 mmol/L; HCO3 23.1 mmol/L (21-28); O2 Saturation % 99.4 % (94-98); PCO2 27 mmHg (35-48); PO2 154 mmHg (83-108)
[2024-12-24] MEDS: NSS 1000 IV ×2 (10:27→23:31)
--- NOTE | 2024-12-24 10:49 | W.PN.NEURO.1 ---
Addendum entered and electronically signed by Coy Castro MD 12/24/24 11:55:
Studies reviewed.
I have personally examined the patient. I reviewed and agree with the [employer]'s Note.
My addenda:
Awake, alert, interactive. No acute distress.
Speech intact.
Follows 2-step requests w/o difficulty. No tremor.
Extra-ocular movements grossly intact.
Facial movements full and symmetric. Hearing intact to normal conversational volume.
Neck: full ROM.
Chest: no dyspnea
Heart: no JVD
Ext: (-) Clubbing, (-) Cyanosis, (-) Edema
IMPRESSIONS/RECOMMENDATIONS:
Abrupt onset of bilateral lower followed by bilateral upper extremity weakness
Differential diagnosis includes functional neurological disorder, Guillain-Graf� syndrome, transverse myelitis
Check MRI of cervical and thoracic spines with and without contrast to determine if there are inflammatory changes producing symptoms
Continue supportive care
Requesting EMG
D/W patient / family / nursing
All questions answered.
Will continue to follow patient.
Original Note:
Today's Communication / Plan
-
.
Neuro Assessment/Plan
Assessment
This is a 34-year-old male with history of Lyme disease presented to [facility] on 12/23/2024 via EMS from home with complaints joint paint and lower extremity weakness.
Chest CT: There is no CT evidence of pulmonary embolism. There is patchy minimal airspace disease in the left upper lobe. Etiology is uncertain but this is likely atelectasis
Labs: +Flu A
CSF: WBC 4, 106, glucose 54, protein 43
EMG: pending
I. Abrupt onset of progressive weakness, sensory loss, and midback pain. CSF is thus far not highly supportive of GBS. Given improvement in reflex response today, some concern for transverse myelitis.
II. History of Lyme disease as a teenager with subsequent weakness during any illness since that time.
Plan
-EMG pending
-MRI cervical and thoracic spine w/ and w/o contrast pending. CR orbits ordered prior to MRI due to report of metal in eyes.
-Continue IVIG, today is day 07/09.
-Consideration for IV steroids will be based on MRI findings.
-Following pending results.
-PT/OT/ST evaluations.
-Bladder scan protocol.
-DVT prophylaxis.
All questions encouraged and answered, plan of care discussed with Dr. Castro, the patient, patient's family.
Subjective/Objective
Subjective Data
Date of Service: December 24, 2024
Patient with severe bilateral arm weakness overnight. Leg weakness persists. Denies changes in bladder/bowel function. He endorses mid back pain between his shoulder blades, neck pain has resolved. Family at bedside note that he had lyme disease as
a teenager and since that time, when he has any illness it is typical for him to become notably weak, often requiring assistance walking to the bathroom; however, the weakness has never been this severe.
Objective Data
Vital Signs
Temp Pulse Resp BP Pulse Ox
98.7 F 73 21 124/79 99
12/24/24 07:12 12/24/24 09:15 12/24/24 09:15 12/24/24 09:00 12/24/24 09:15
Lab Results
12/24/24 03:56
12/24/24 03:56
PT 15.6 Sec (11.4-14.6) H 12/24/24 09:29
INR 1.19 12/24/24 09:29
APTT 44.1 Sec (23.4-35.0) H 12/24/24 09:29
Sodium 134 mmol/L (135-145) L 12/24/24 03:56
Potassium 3.4 mmol/L (3.5-5.1) L 12/24/24 03:56
BUN 11 mg/dl (9-20) 12/24/24 03:56
Glucose 99 mg/dl (70-99) 12/24/24 03:56
Calcium 8.0 mg/dl (8.4-10.2) L 12/24/24 03:56
Ikc-J-Pziawecwujt Pept < 20.0 pg/ml 12/23/24 09:34
Patient Allergies
No Known Allergies Allergy (Unverified 06/29/10 20:04)
Review of Systems
-
History Source: Patient
Constitutional: Fever, Fatigue and Weakness
EENT: Negative Decreased Vision or Swallowing Difficulty
Respiratory: Cough and Trouble Breathing
Cardiac: Negative Chest Pain or Palpitations
Abdomen/GI: Negative Incontinence of Stool
Genitourinary: Negative Difficulty Voiding
Skin: Negative Rash
Neuro: Weakness and Numbness; Negative Dizzy, Headache, Ataxia, Tremors or Speech Problem
Physical Exam
-
General: Well Developed, Well Nourished and Wearing Oxygen
Eyes: No Ptosis and PERRLA
HEENT: Normocephalic and Atraumatic
Neck: Full Range of Motion
Respiratory: Negative No Dyspnea
GI: Non-distended
Extremities: No Clubbing, No Cyanosis and No Edema
Psych: Unremarkable
Extended Neurological Exam
Mood & Affect: Mood Unremarkable and Affect Unremarkable
Attention Span & Concentration: Awake, Alert and Interactive
Memory: Able to Recall
Tremor: Hand Tremor Absent and Head Tremor Absent
Involuntary Movement: None
Speech: Quality Unremarkable, Quantity Unremarkable and Rate of Production Unremarkable
Cranial Nerve II: Left Eye: Pupillary Reactivity Unremarkable, Pupillary Size Unremarkable and Visual Cross Intact
Cranial Nerve II: Right Eye: Pupillary Reactivity Unremarkable, Pupillary Size Unremarkable and Visual Cross Intact
Cranial Nerves III, IV, : Extraocular Movement: Extraocular Movement Full in all Directions
Cranial Nerve VII: Facial Symmetry: Normal Facial Symmetry
Cranial Nerve VIII: Hearing: Unremarkable Hearing to Normal Conversational Volume
Cranial Nerves IX, X: Palate Movement: Palate Elevation Symmetric
Cranial Nerve XII: Tongue Protusion: Midline
Muscle Strength, Overall: Reduced Throughout (Bilateral upper extremities 3/5, bilateral lower extremities 2-/5)
Pronator Drift: Drift in Left Upper Extremity, Drift in Right Upper Extremity, Drift in Left Lower Extremity and Drift in Right Lower Extremity
Deep Tendon Reflexes: Trace Throughout
Cold Sensation: Absent Distally (in bilateral lower extremities)
Vibration Sensation: Reduced Moderately Distally (in bilateral upper extremities) and Absent Distally (in bilateral lower extremities)
Coordination: Unable to Assess
Babinski Sign: Absent Bilaterally
Gait & Station: Unable to Assess
Data Reviewed
-
MRI Cervical Spine: Pending
MRI Thoracic Spine: Pending
Medical Test Reports: Report Reviewed
Labs: Report Reviewed
Reviewed with: Physician, Patient and Family
Medications
-
Active Medications
Generic Name Dose Route Start Last Admin
Trade Name Freq PRN Reason Stop Dose Admin
Acetaminophen 650 mg 12/23/24 20:00 12/24/24 10:27
Acetaminophen 325 Mg Tablet PO 01/20/25 19:59 650 mg
Q4HPRN PRN Administration
mild pain/KOWALSKI/temp> 100.4F
Bisacodyl 10 mg 12/23/24 17:00
Bisacodyl 10 Mg Rectal Suppository RECTAL 01/20/25 16:59
[id number] PRN
constipation
Enoxaparin Sodium 40 mg 12/23/24 22:00 12/23/24 22:40
Enoxaparin Sodium 40 Mg/0.4 Ml Syringe SC 01/20/25 21:59 40 mg
QPM NU Administration
Immune Globulin 30 grams in 300 mls @ 0 mls/hr 12/23/24 18:00 12/23/24 18:04
Gammagard IV 12/27/24 23:59 300 mls
DAILY@1800 NU Administration
Protocol
Per Protocol
Immune Globulin 5 gram in 50 mls @ 0 mls/hr 12/23/24 17:00 12/23/24 16:45
Gammagard IV 12/27/24 23:00 50 mls
DAILY@1700 NU Administration
Protocol
Per Protocol
Sodium Chloride 1,000 mls @ 100 mls/hr 12/23/24 17:00 12/24/24 10:27
Nss IV 1,000 mls
.Q10H NU Administration
Polyethylene Glycol 17 grams 12/23/24 17:00
Polyethylene Glycol Powder 17 Grams Packet PO 01/20/25 16:59
DAILYPRN PRN
constipation
Senna/Docusate Sodium 1 tablet 12/23/24 17:00
Docusate W/Senna (Zeina-Colace) Tablet PO 01/20/25 16:59
BIDPRN PRN
constipation
Sodium Chloride 0 flush 12/23/24 18:00
Sodium Chloride 0.9% (Flush) Syringe IV 01/20/25 17:59
PER PROTOCOL NU
Thiamine HCl 100 mg 12/23/24 16:00 12/24/24 08:24
Thiamine (100 Mg/Ml) 2 Ml Vial IV 12/26/24 15:59 100 mg
DAILY NU Administration
Tramadol HCl 50 mg 12/23/24 17:35 12/23/24 17:47
Tramadol Hcl 50 Mg Tablet PO 01/20/25 17:04 50 mg
Q6HPRN PRN Administration
MODERATE PAIN
Home Medications
�Medication �Instructions �Recorded
ascorbic acid (vitamin C) 500 mg 500 mg PO DAILY Supplement 12/23/24
tablet (Vitamin C)
glucosamine sulfate 500 mg tablet 500 mg PO DAILY Supplement 12/23/24
(Glucosamine)
lysine 500 mg tablet 500 mg PO DAILY Supplement 12/23/24
--- NOTE | 2024-12-24 11:10 | PTCARENOTE ---
radiology here for orbital xrays pre MRI. Family remains. On 15 l nasal cannula. med with tylenol, temp noted, resting unless disturbed.
[2024-12-24 11:42] LABS: Lyme Antibody Screen, EIA Negative (Negative)
[2024-12-24 12:09] LABS: C-Reactive Protein 69.60 mg/L (0.0-10.00)
--- NOTE | 2024-12-24 12:14 | CM ---
Initial assessment completed with . Patient sleeping. Patient lives with his and 20month old son in a 2 story home plus basement with B/B on 2nd and 1/2 bath on 1st, 3 steps to enter. [employer] patient was independent in ADL's and ambulation,
drives. No DME or in-home services. No service or psychiatric hospitalizations. No HC-POA. AD literature provided. PCP is Dr. Kory Marks and Pharmacy is [facility] on [facility] in [place]. Discharge POC: Anticipate no needs.
--- NOTE | 2024-12-24 13:06 | PTCARENOTE ---
1215 Orbital xray clear, transported to MRI via bed with RN.
[2024-12-24] MEDS: GAMMAGARD 50 IV (14:45)
--- NOTE | 2024-12-24 15:07 | PTCARENOTE ---
back from MRI, complete CHG bath and linen change, IVIG infusing as ordered, see titration.
[2024-12-24] MEDS: GAMMAGARD 300 IV (15:21)
--- NOTE | 2024-12-24 16:12 | W.PN.UPDATE ---
Addendum entered and electronically signed by Tee Childers MD 12/25/24 14:10:
Correction
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
Original Note:
Update Note
Progress Note Update
Seen and examined by me independently in collaboration with the manager medical affairs.
Lab data and imaging data reviewed.
Addendum as below :
Patient presents with flulike symptoms associated with significant muscle weakness mostly in the upper extremities and lower extremities. He is influenza A positive.
Decreased generalized strength. Also has muscle pains on attempts of passive range of motion of the joints. CPK is normal. Hyperreflexia noted.
Clinical concern is some form of TB in the current time.
Lumbar puncture with no increased protein and so requesting an MRI of the brain and cervical thoracic spine. Also obtaining an EMG today.
Continue with supportive care as well as IVIG per neurology. Continue to follow vital capacity and MIP in ICU.
Discussed with the and mother at bedside.
Total time spent on today's encounter was 52 minutes which included time spent in counseling the patient/family regarding diagnosis and treatment plan as listed above, goals of care, and symptom management. Case was discussed with nursing staff,
specialists, and care coordinators/case management. All labs and imaging personally reviewed by me. Remainder the time spent in detailed review of previous records, lab data, imaging, and other medical provider documentation.
--- NOTE | 2024-12-24 16:23 | RESPNOTE ---
Respiratory: VC 2.6 L with good patient effort.
[2024-12-24] MEDS: LOVENOX 40 MG SC (17:56)
--- NOTE | 2024-12-24 18:05 | PTCARENOTE ---
EMG in progress. Family bedside, updated by Dr. Summers, to room air. Rest of VS remain very stable, pulse ox on room air 98%. No resp distress or sensations of air hunger. I/O collected.
--- NOTE | 2024-12-24 19:07 | W.PN.UPDATE ---
Update Note
Progress Note Update
EMG/NCS of both lower limbs and the left upper limb was unremarkable after correcting for cool lower limb temperatures (21 degrees centigrade). Dictated report and tabular data to follow.
--- NOTE | 2024-12-24 21:00 | PTCARENOTE ---
Resumed care of pt this evening. Received pt drowsy but A&Ox3. Pt has generalized weakness and has difficulty moving all 4 extremities. Sensation is intact. Pt can make needs known and rings appropriately. Pt is NSR on tele monitor, has no edema,
and pedal pulses are palpable bilaterally. Pt has an occasional non productive cough. Pt's pulse ox is 99% on RA. On auscultation pt lungs sound clear. Pt's abdomen is round w/ active BS. Condom cath in place and pt is voiding clear yellow urine.
Skin is C/D/I.
[2024-12-24] MEDS: ULTRAM 50 MG PO (21:14)
--- NOTE | 2024-12-24 21:30 | PTCARENOTE ---
Pt c/o pain/discomfort and requested PRN ultram for relief. Ultram administered by this RN.
[2024-12-25] VITALS (18 sets, daily range): BP systolic 106–133; BP diastolic 68–84; PULSE 66; O2SAT 99; BMI 25.4
--- NOTE | 2024-12-25 | PTCARENOTE ---
Upon reassessment pt is resting comfortably. Neurological checks unchanged.
[2024-12-25 05:34] LABS: ALT (SGPT) 24 U/L (0-50); AST (SGOT) 26 U/L (17-59); Albumin 3.4 g/dl (3.5-5.0); Alkaline Phosphatase 46 U/L (38-126); Blood Urea Nitrogen 10 mg/dl (9-20); Calcium 8.2 mg/dl (8.4-10.2); Carbon Dioxide 26 mmol/L (22-30); Chloride 107 mmol/L (98-107); Estimated Creatinine Clearance > 125 ml/min; Glucose 91 mg/dl (70-99); Magnesium 2.2 mg/dl (1.6-2.3); Potassium 3.9 mmol/L (3.5-5.1); Sodium 139 mmol/L (135-145); Total Protein 7.1 g/dl (6.3-8.2); eGFR > 60.00
--- NOTE | 2024-12-25 05:56 | W.PN.HOSP.TC ---
Today's Communication/Plan
-
iv immunoglobin stopped.
Ketorolac 15 mg started.
Assessment / Plan
Assessment / Plan
34 yrs old Male with k/c/o lyme disease in the past presented with weakness of the lower limb which progressed to the upper limb now.
# Progressively increase in muscle weakness due to viral etiology:
-The nature of weakness is progressively increase from lower limb to upper limb involving neck muscles, along with fever, inflammation suspicious for infection source.
- Flu A pneumonia positive.
-Lyme disease Ig G, M serum shows negative.
-Creatinine Kinase is 82 within normal range.
-CRP 69 inflammatory marker is high.
-Serum Potassium 3.9 improved with 40 mEq potassium correction , Sodium 139 (N) comparing with 134 yesterday.
-Low Calcium 8.2;
-CBC:
Platelet is low 122 (l) WBC= 3.9 (l) Comparing from his presentation of yesterday around 7.1 possibly due to
-Lumbar puncture, CSF analysis- no gram stain, viral growth indicates to rule out meningitis.
-AFB stain pending status
-Stopped the IV Immunoglobin started for 5 days ( DAY 3).
-EMG : 'both lower limbs and the left upper limb was unremarkable after correcting for cool lower limb temperatures (21 degrees centigrade)', within normal limits,excluding GBS
-Consulted speech therapy evaluation, OT, PT for tomorrow.
- MRI C/T spine and brain: w/ and w/o contrast normal
- Neurology recommends CBT for psychological component- by suspecting functional neurological disorder.
DVT prophylaxis: Lovenax
Anticipated Discharge: 24 - 48 hours
Subjective/Interval History
-
Date of Service: December 25, 2024
Patient is sleeping.
History obtained from his mother Haleigh at bedside mentioned pt is currently having dry cough which was improved comparing from yesterday, he had good sleep, trying his best to lift upper arm, lower limbs with assistance, had a bowel movement
yesterday evening, and no concerns for fever, chills,abdominal pain, constipation, chest pain, nausea.
Patient mom repeatedly mentioned ' from his age 14 after diagnosed with lyme disease, he used to have weakness, and long sleep continuously for 48 hrs while on flare up for the lyme's disease'
Objective Data
-
Labs:
12/25/24 04:38
12/25/24 04:38
Laboratory Results
PT 15.6 Sec (11.4-14.6) H 12/24/24 09:29
INR 1.19 12/24/24 09:29
APTT 44.1 Sec (23.4-35.0) H 12/24/24 09:29
pH 7.54 (7.35-7.45) H 12/24/24 10:12
pCO2 27 mmHg (35-48) L 12/24/24 10:12
pO2 154 mmHg (83-108) H 12/24/24 10:12
HCO3 23.1 mmol/L (21-28) 12/24/24 10:12
Lactic Acid Cancelled 12/23/24 13:45
Total Bilirubin 0.5 mg/dl (0.2-1.3) 12/25/24 04:38
AST 26 U/L (17-59) 12/25/24 04:38
ALT 24 U/L (0-50) 12/25/24 04:38
Alkaline Phosphatase 46 U/L (38-126) 12/25/24 04:38
Troponin I Cancelled 12/23/24 10:01
Laboratory Results
Vital Signs:
Vital Signs
Temp Pulse Resp BP Pulse Ox
97.8 F 77 22 128/72 99
12/25/24 05:02 12/25/24 04:45 12/25/24 04:45 12/25/24 04:00 12/25/24 04:45
I&O
12/23/24 12/24/24 12/25/24
06:59 06:59 06:59
Intake Total 2804 / 2804
Output Total 850 / 850 4660 / 4660
Balance -850 / -850 -1856 / -185
[2024-12-25 06:04] LABS: Hematocrit 39.0 % (39.0-52.0); Hemoglobin 13.3 g/dL (13.0-18.0); Mean Corp Hgb Conc. 34.1 g/dL (33.0-37.0); Mean Corpuscular Volume 83.5 fL (80.0-94.0); Nucleated Red Blood Cells % 0 % (-); Platelet Count 122 10^3/uL (130-400); Red Cell Dist. Width 13.1 % (11.5-14.5)
--- NOTE | 2024-12-25 07:38 | W.PN.NEURO.1 ---
Today's Communication / Plan
-
Discontinue IVIG
Outpatient psychological evaluation for cognitive behavioral therapy
DVT prophylaxis
Neuro Assessment/Plan
Assessment
This is a 34-year-old male with history of Lyme disease presented to [facility] on 12/23/2024 via EMS from home with complaints joint paint and lower extremity weakness.
Labs: +Flu A
CSF: WBC 4, RBC 106, glucose 54, protein 43
EMG normal
MRI brain, cervical and thoracic spine w/ and w/o contrast normal
I. Abrupt onset of progressive weakness, sensory loss, and midback pain; due to functional neurological disorder
II. History of Lyme disease as a teenager with subsequent weakness during any illness since that time.
Plan
Discontinue IVIG
Outpatient psychological evaluation for cognitive behavioral therapy
DVT prophylaxis
Will follow as needed
Subjective/Objective
Subjective Data
Date of Service: December 25, 2024
Objective Data
Vital Signs
Temp Pulse Resp BP Pulse Ox
36.6 C 57 17 113/77 99
12/25/24 05:02 12/25/24 06:00 12/25/24 06:00 12/25/24 06:00 12/25/24 06:00
Lab Results
12/25/24 04:38
12/25/24 04:38
PT 15.6 Sec (11.4-14.6) H 12/24/24 09:29
INR 1.19 12/24/24 09:29
APTT 44.1 Sec (23.4-35.0) H 12/24/24 09:29
Sodium 139 mmol/L (135-145) 12/25/24 04:38
Potassium 3.9 mmol/L (3.5-5.1) 12/25/24 04:38
BUN 10 mg/dl (9-20) 12/25/24 04:38
Glucose 91 mg/dl (70-99) 12/25/24 04:38
Calcium 8.2 mg/dl (8.4-10.2) L 12/25/24 04:38
Iqc-V-Iuhlznqsvba Pept < 20.0 pg/ml 12/23/24 09:34
Patient Allergies
No Known Allergies Allergy (Unverified 06/29/10 20:04)
--- NOTE | 2024-12-25 07:48 | W.PN.INTV ---
Today's Communication / Plan
Recommendations
- Per Neurology, CBT for functional/psychological component of illness
- Consider transfer out of ICU given improvement in clinical status
Assessment
-
34 yo M PMH of lyme disease presenting with Flu A pneumonia and generalized weakness
# Generalized weakness
- EMG studies are within normal limits, effectively excluding GBS
- MRI C/T spine are unremarkable
- There may be a component of functional neurological disorder
- Neurology recommends CBT for psychological component
# Flu A pneumonia
- Improving
# Disposition
- Can consider transfer to telemetry
Subjective Dataa
Subjective Data
Date of Service:
Date of Service: December 25, 2024
Subjective:
34 yo M PMH of lyme disease presenting with Flu A pneumonia and significant weakness, currently most concerning for possible GBS.
Interim events notable for EMG studies: unremarkable, MRI cervical/thoracic spine: unremarkable.
This morning, he feels improved but still endorses weakness. He denies chest pain or dyspnea. He is sitting in chair and on room air.
Objective Data
Data Reviewed
Vital Signs / I&O / Oxygen:
Vital Signs
Temp Pulse Resp BP Pulse Ox
97.8 F 57 17 113/77 99
12/25/24 05:02 12/25/24 06:00 12/25/24 06:00 12/25/24 06:00 12/25/24 06:00
Intake and Output
12/24/24 12/25/24 12/26/24
06:59 06:59 06:59
Intake Total 2904 / 2904
Output Total 850 / 850 4660 / 4660
Balance -850 / -850 -1756 / -1756
SaO2 99
Nasal Cannula flow liters per 3
minute
Physical Exam
General: Comfortable
HEENT: Normocephalic
Cardiovascular: Regular Rhythm and Other (no murmurs)
Respiratory: Clear and Other (occasional cough)
GI: Non Tender
Neurology: AO x 3 and Other (2/5 motor strength upper and lower extremities)
Skin: Warm and Dry
Labs/Micro/Reports
Lab Data
12/25/24 04:38
12/25/24 04:38
Laboratory Results
12/24/24 12/24/24
09: 10:12
PT 15.6 H
INR 1.19
APTT 44.1 H
pH 7.54 H
pCO2 27 L
pO2 154 H
HCO3 23.1
O2 Delivery Level
WBC 3.9
Hgb 13.3
Plt 122
Ca2+ 8.2
K+ 3.9
CSF studies pending
Microbiology
Meningitis panel negative
12/23/24 09:47 Blood/Venous Blood Culture - Preliminary
No Growth in 24 hours- Final report to follow
12/23/24 14:39 Csf CSF Culture - Preliminary
No Growth After 18-24 Hours
12/23/24 14:39 Csf Gram Stain - Preliminary
12/23/24 14:39 Csf Meningitis/Encephalitis Panel (PCR) - Final
12/23/24 09:34 Nasal Swab Influenza Types A & B (MATTHEW) - Final
Influenza A Positive, NAAT
--- NOTE | 2024-12-25 08:40 | PTCARENOTE ---
recd pt 0715 handoff at bedside, assessed as noted. family bedside. taking PO fluids well, condom cath draining. Mod assist 2 to chair, chair sling placed under for return if needed. Feels better OOB, remains weak. Denies numbness in extrem,
notes breathing feels improved. tolerating room air.
[2024-12-25 08:50] LABS: Glycohemoglobin (HgbA1c) 5.4 % (4.0-5.6)
[2024-12-25] MEDS: NSS IV (10:05)
--- NOTE | 2024-12-25 13:06 | PTCARENOTE ---
stood to reposition, took a few steps forward and back, remains weak but motivated for improvement. awaiting lunch. call ortega in reach.
--- NOTE | 2024-12-25 14:05 | W.PN.UPDATE ---
Update Note
Progress Note Update
Seen and examined by me independently in collaboration with the vp medical.
Lab data and imaging data reviewed.
Addendum as below :
Patient today sitting in the chair. He was able to move out of the bed mostly by himself but needed caution.
He feels slowly improved with regards to fatigue, muscle strength and pain. Ongoing dry cough. He denies any shortness of breath.
Nontoxic looking.
Afebrile and hemodynamically stable. Oxygenating well on room air.
Chest clear.
Upper extremity distal strength 5/5 and proximally 4 x 5 but limited by what looks like muscle discomfort/shoulders discomfort .
MRI of the brain negative for acute findings. EMG was negative.
Discussed with neurology who feels this is unlikely GBM. IVIG discontinued.
Continue with supportive treatment for acute influenza A infection with associated fatigue.
Transfer to [facility]. Consult PT.
Discussed with at bedside.
Discussed with RN.
Total time spent on today's encounter was 52 minutes which included time spent in counseling the patient/family regarding diagnosis and treatment plan as listed above, goals of care, and symptom management. Case was discussed with nursing staff,
specialists, and care coordinators/case management. All labs and imaging personally reviewed by me. Remainder the time spent in detailed review of previous records, lab data, imaging, and other medical provider documentation.
--- NOTE | 2024-12-25 14:44 | CM ---
Discharge POC: Acute Rehab. [employer] list provided to .
--- NOTE | 2024-12-25 15:49 | TRANSFER ---
condom cath removed, skin remains intact. Urinal provided. Transferred to new bed and taken to room 432. Report to next RN and all belongings included. Family accompanied.
[2024-12-25] MEDS: TESSALON PERLES 200 MG PO (17:39)
[2024-12-25] MEDS: LOVENOX 40 MG SC (17:40)
[2024-12-25] MEDS: TYLENOL 650 MG PO (20:15)
[2024-12-25] MEDS: TORADOL 15 MG IV (21:50)
[2024-12-26 07:25] VITALS: BP 131/82
--- NOTE | 2024-12-26 07:33 | W.PN.HOSP.TC ---
Today's Communication/Plan
-
cbc
cmp
Assessment / Plan
Assessment / Plan
34 yrs old Male with k/c/o lyme disease in the past presented with weakness of the lower limb which progressed to the upper limb now.
# Progressively increase in muscle weakness due to viral etiology:
-The nature of weakness is progressively increase from lower limb to upper limb involving neck muscles, along with fever, inflammation suspicious for infection source.
- Flu A pneumonia positive.
-Lyme disease Ig G, M serum shows negative.
-Creatinine Kinase is 82 within normal range.
-CRP 69 inflammatory marker is high.
-Serum Potassium 3.9 improved with 40 mEq potassium correction , Sodium 139 (N) comparing with 134 yesterday.
-Low Calcium 8.2;
-CBC:
Platelet is low 122 (l) WBC= 3.9 (l) Comparing from his presentation of yesterday around 7.1.
-Lumbar puncture, CSF analysis- no gram stain, viral growth indicates to rule out meningitis.
-AFB stain pending status
-Stopped the IV Immunoglobin started for 5 days ( DAY 3).
-EMG : 'both lower limbs and the left upper limb was unremarkable after correcting for cool lower limb temperatures (21 degrees centigrade)', within normal limits,excluding GBS
-Consulted speech therapy evaluation, OT, PT for tomorrow.
- MRI C/T spine and brain: w/ and w/o contrast normal
- Neurology recommends CBT for psychological component- by suspecting functional neurological disorder.
- Physiatry consult placed for the rehabilitation and access the strength.
DVT prophylaxis: Lovenax
Anticipated Discharge: 24 - 48 hours
Subjective/Interval History
-
Date of Service: December 26, 2024
Patient is feeling better today. He provided history today. He has a chest pain becasue of dry cough which now subsided by antitussives. He is ambulating from bed with the help and rolling walker.
Objective Data
-
Labs:
Laboratory Results
12/26/24 08:07
12/26/24 08:07
Laboratory Results
PT 15.6 Sec (11.4-14.6) H 12/24/24 09:29
INR 1.19 12/24/24 09:29
APTT 44.1 Sec (23.4-35.0) H 12/24/24 09:29
pH 7.54 (7.35-7.45) H 12/24/24 10:12
pCO2 27 mmHg (35-48) L 12/24/24 10:12
pO2 154 mmHg (83-108) H 12/24/24 10:12
HCO3 23.1 mmol/L (21-28) 12/24/24 10:12
Lactic Acid Cancelled 12/23/24 13:45
Total Bilirubin 0.6 mg/dl (0.2-1.3) 12/26/24 08:07
AST 51 U/L (17-59) 12/26/24 08:07
ALT 42 U/L (0-50) 12/26/24 08:07
Alkaline Phosphatase 62 U/L (38-126) 12/26/24 08:07
Troponin I Cancelled 12/23/24 10:01
Vital Signs:
Vital Signs
Temp Pulse Resp BP Pulse Ox
97.4 F 57 18 122/72 99
12/25/24 23:13 12/25/24 23:13 12/25/24 23:13 12/25/24 23:13 12/25/24 23:13
I&O
12/25/24 12/26/24 12/27/24
06:59 06:59 06:59
Intake Total 2904 / 3004 2600 / 2600
Output Total 4660 / 4660 1525 / 1525
Balance -1756 / -1656 1075 / 1075
Review of Systems
-
History Source: Patient
Constitutional: Reports Fatigue and Weakness (all over body)
EENT: Reports No Symptoms Reported
Respiratory: Reports Cough (dry cough)
Cardiac: Reports No Symptoms
Abdomen/GI: Reports No Symptoms
Genitourinary: Reports No Symptoms
Musculoskeletal: Reports No Symptoms
Skin: Reports No Symptoms
Neuro: Reports No Symptoms
Endocrine: Reports No Symptoms
Hematologic / Lymphatic: Reports No Symptoms
Allergy / Immunology: Reports No Symptoms
Physical Exam
-
General: No Apparent Distress
HEENT: Moist Mucous Membranes
Respiratory: Clear to Auscultation
Cardiac: Regular Rhythm and S1/S2
GI: Soft, Nontender and Nondistended
Genito-urinary: No Costovertebral Tender
Musculoskeletal: No Clubbing
Skin: Warm
Neuro: AO x 3
Hematologic / Lymphatic: No Lymphadenopathy
Psych: Calm
[2024-12-26 08:49] LABS: Hematocrit 42.3 % (39.0-52.0); Hemoglobin 14.7 g/dL (13.0-18.0); Mean Corp Hgb Conc. 34.8 g/dL (33.0-37.0); Mean Corpuscular Volume 81.7 fL (80.0-94.0); Platelet Count 148 10^3/uL (130-400); Red Cell Dist. Width 12.7 % (11.5-14.5)
[2024-12-26] MEDS: VITAMIN C 500 MG PO (09:22)
[2024-12-26 09:27] LABS: ALT (SGPT) 42 U/L (0-50); AST (SGOT) 51 U/L (17-59); Albumin 4.2 g/dl (3.5-5.0); Alkaline Phosphatase 62 U/L (38-126); Blood Urea Nitrogen 16 mg/dl (9-20); Calcium 9.0 mg/dl (8.4-10.2); Carbon Dioxide 22 mmol/L (22-30); Chloride 106 mmol/L (98-107); Estimated Creatinine Clearance > 125 ml/min; Glucose 96 mg/dl (70-99); Potassium 4.0 mmol/L (3.5-5.1); Sodium 138 mmol/L (135-145); Total Protein 8.4 g/dl (6.3-8.2); eGFR > 60.00
[2024-12-26 09:51] LABS: Nucleated Red Blood Cells % 0 % (-)
[2024-12-26] MEDS: TYLENOL 650 MG PO ×3 (10:29→22:45)
[2024-12-26] MEDS: TESSALON PERLES 200 MG PO ×3 (10:30→22:43)
[2024-12-26 12:41] VITALS: BP 127/85; PULSE 58
--- NOTE | 2024-12-26 13:11 | CM ---
Chart reviewed and per physical therapy evaluation they are recommending acute rehab, caser up reached out to patient and spoke with patient's spouse and per patient's spouse they are interested in [facility], referral sent to [place] and
will await Physiatry evaluation and recommendation.
Plan; Referral sent to [facility] at [facility].
--- NOTE | 2024-12-26 14:29 | W.PN.UPDATE ---
Update Note
Progress Note Update
Seen and examined by me independently in collaboration with the product manager medical device.
Lab data reviewed.
Addendum as below :
Patient with continued improvement with his muscular pains and joint pains. Improving mobility as well.
Ongoing dry cough but no fever chills. No shortness of breath. No chest pain.
No nausea or vomiting.
Acute influenza A infection with severe fatigue and musculoskeletal symptoms. CPK normal. Deemed less likely of GB syndrome. Patient with spontaneous improvement. Continue with supportive care and physical therapy. Consult bulk sugar handler for acute
rehab evaluation.
Lyme serology including IgG and MR negative.
DW at bedside.
[2024-12-26 15:15] VITALS: BP 117/77
--- NOTE | 2024-12-26 18:00 | CON.MD ---
Consultation - Medical
-
Chief Complaint:�Difficulty walking
�
History of Present Illness:�34-year-old R handed male with PMH (as below) presented to [facility] on 12/23/2024 with fever chills weakness and fatigue as well as difficulty ambulating and painful joints with excruciating neck pain. Is very
active person at baseline, complains of pain with urination. Over 2 weeks ago he took a 5-day course of steroids for swollen left knee. He tested positive for flu a in the emergency department, his son is also sick. 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
Guillain-Graf� syndrome. He had an LP performed in radiology and is CT of the chest to rule out pulmonary embolism. Meningitis and Lyme panels were sent and started on IVIG by neurology. Treated with Tamiflu. He had an EMG done on 12/24/2024 that
was unremarkable. With negative workup except for influenza A neurology noting concern for functional neurologic disorder. Continues to improve from influenza A pneumonia
�
Past Medical History:�Lyme disease
Procedure History:�None
Family History:�None pertinent
�
Social History:�
Functional Level Premorbidly:�Independent with all activities�
Functional Level Currently:�Min assist bed, mobility min assist of 2 sit to stand, min assist functional ambulation, min assist ADLs
�
Tobacco:�Denies�
Alcohol:�Denies�
Drug use:�Denies�
�
Lives with:�Spouse
24-hour assistance available:�Possibly
Number of floors:�2
# steps to enter:�3
# steps to second floor: Full flight
Potential First floor set up:�Yes
Driving:�Yes
Occupation:�[employer]
�
�
Allergies:�
Allergy/AdvReac Type Severity Reaction Status Date / Time
No Known Allergies Allergy Unverified 06/29/10 20:04
�
Review of Systems:�
Constitutional: (x) Normal _
Eye: (x) Normal _
Ear/Nose/Throat: (x) Normal _
Respiratory: (x) Normal _
Cardiovascular: (x) Normal _
Gastrointestinal: (x) Normal _
Genitourinary: (x) Normal _
Musculoskeletal: (x) Normal _
Integumentary: (x) Normal _
Neurologic: (x) Normal _
Psychiatric: (x) Normal _
Endocrine: (x) Normal _
Hematologic/Lymphatic: (x) Normal _
Allergic/Immunologic: (x) Normal _
�
Medications:�
Active Current Visit Medication List
Category Date Time Status
Acetaminophen [Tylenol] Med 12/23/24 20:00 Active
650 mg PO Q4HPRN PRN
Ascorbic Acid [Vitamin C] Med 12/26/24 08:00 Active
500 mg PO DAILY
Benzonatate [Tessalon Perles] Med 12/26/24 17:55 Active
200 mg PO TIDPRN PRN
Bisacodyl [Dulcolax] Med 12/23/24 17:00 Active
10 mg RECTAL [id number] PRN
Docusate W/Senna [Senokot-S] Med 12/23/24 17:00 Active
1 tablet PO BIDPRN PRN
Enoxaparin Sodium [Lovenox] Med 12/23/24 22:00 Active
40 mg SC QPM
Flush (0.9% Sodium Chloride) [Flush (Nss)] Med 12/23/24 18:00 Active
See Dose Instructions IV PER PROTOCOL
Guaifenesin/Dextromethorphan [Robitussin Dm] Med 12/26/24 17:58 Active
10 ml PO Q4HPRN PRN
Ipratropium/Albuterol Sulfate [Duoneb] Med 12/24/24 13:40 Active
3 ml INH R Q4HPRN PRN
Ketorolac [Toradol] Med 12/25/24 12:21 Active
15 mg IV Q6HPRN PRN
Polyethylene Glycol Powder [Miralax] Med 12/23/24 17:00 Active
17 grams PO DAILYPRN PRN
�
Vitals:�
Temp Pulse Resp BP Pulse Ox
97.5 F 85 16 117/77 95
12/26/24 15:15 12/26/24 15:15 12/26/24 15:15 12/26/24 15:15 12/26/24 15:15
Height 6 ft 3 in
Actual Weight 92.3 kg
Body Mass Index (BMI) 25.4
�
Physical Exam:�
General Appearance/Observation: Well-developed, well-nourished male in no apparent distress.�
Pain/Comfort Assessment: Denies�
Mood/Affect: Appropriate�
�
Integumentary/Operative Site:�
�� Pressure Ulcer Evaluation: absent over heels.�
Eyes: Conjunctiva/Lids: normal��� Pupils: pupils equal round and reactive to light and Accommodation
Ears/Nose/Throat: oral mucosa moist, throat clear.������������ Lips/Teeth/Gums: normal
Neck: No muscle spasm or tenderness�
Cardiovascular: Heart: regular, no murmur�
Pulses: dorsalis pedis 2+ bilaterally�
Respiratory: Respiratory Effort/Chest Expansion: normal������ Auscultation: Clear to auscultation bilaterally
Gastrointestinal: abdomen not tender, no distension, normal abdominal bowel sounds
Genitourinary: No Yates�
Extremities:�Edema: None�Cyanosis: None�Trophic�changes: None
�
Neurology Exam:
Orientation: Alert, Oriented to self, Time, Place�
Memory: Intact
Repetition: Intact
Comprehension: Intact
Two step command: Intact
Cranial Nerves:
�� CNII:�Pupillary light reflex: Intact���Visual Field: Intact
�� CN III, IV, : Extraocular muscles: Intact�
�� CN V:�Facial Sensation�at�Forehead: Intact,�Maxilla: Intact,�Mandible: Intact
�� CN VII:�Facial movement: Symmetric
�� CN VIII:�Hearing: Normal
�� CN IX/X:�Speech & swallow: Normal,�Position of Uvula: Midline
�� CN XI:�Shoulder shrug: Symmetric
�� CN XII:�Tongue protrusion: Midline
Sensory:
�� Light touch: Intact in bilateral upper and lower extremities
�
Reflexes:
�� Biceps: 2+ bilaterally
�� Brachioradialis: 2+ bilaterally
�� Triceps: 2+ bilaterally
�� Patellar: 2+ bilaterally
�� Achilles: 2+ bilaterally
�� Babinski: Down going bilaterally
�� Clonus: None
�� Christi: Negative bilaterally�
Cerebellar: Dysmetria/Ataxia: None�
Musculoskeletal: Motor: (Manual muscle scale 0-5)�
Muscle SA EF WE EE FF FA HF KE DF EHL PF
Right� 4 5 5 4 5 4 4 5 5 5 5
Left 4 5 5 4 5 4 4 5 5 5 5
�
Tone: Normal in all extremities�
Range of Motion: Passively within normal limits in all extremities�
�
Lab Results
Laboratory Data
12/26/24 08:07
12/26/24 08:07
PT 15.6 Sec (11.4-14.6) H 12/24/24 09:29
INR 1.19 12/24/24 09:29
APTT 44.1 Sec (23.4-35.0) H 12/24/24 09:29
Total Bilirubin 0.6 mg/dl (0.2-1.3) 12/26/24 08:07
AST 51 U/L (17-59) 12/26/24 08:07
ALT 42 U/L (0-50) 12/26/24 08:07
Alkaline Phosphatase 62 U/L (38-126) 12/26/24 08:07
Total Protein 8.4 g/dl (6.3-8.2) H 12/26/24 08:07
Albumin 4.2 g/dl (3.5-5.0) 12/26/24 08:07
�
Diagnostic Results:�as per HPI�
�
Assessment
34 y/o M PMH (Lyme disease)�with 12/23/2024 influenza A pneumonia with significant weakness, sensory concerns, and pain causing significant ADL and amatory dysfunction.
�
Plan�
PM&R�PT/OT to increase independence with ADLs, improve balance, coordination, endurance, strength, mobility, community reintegration, decreased burden of care on others and family education.�
�
Influenza A: Significant reaction to having influenza A. Other workup including EMG and MRI negative. He has apparently had this kind of reaction each time he is sick after initially cady Lyme's disease.
�
Psych: Psychology consult.� Monitor mood, adjust medications as needed.�
Skin: monitor for pressure sores/rashes/lesions.�
Pain: acetaminophen as needed.�
Bowel: moving boewls
Bladder: No retention concerns
DVT Prophylaxis: Mechanical and Lovenox
Pulmonary: Incentive spirometry�
Safety: Continue to reinforce assistance with all transfers.�
Code Status:� Full code
Dispo�(date/plan/equipment needs): Home with family care.� Social history reviewed.�
Discharge Destination:��Acute inpatient rehab, unless he makes good improvement and can go home before discharge.
�
Thank you for allowing me to care for your patient. Please contact me with any questions or concerns.
Consultation
-
Date/Time Consultation Performed: 12/26/24
Requesting Provider: Dr. Tee Childers
Performing Provider: Dr. Shashank Knapp
Reason for Consultation: Debility
[2024-12-26] MEDS: ROBITUSSIN DM 10 ML PO (18:08)
[2024-12-26] MEDS: LOVENOX 40 MG SC (18:08)
[2024-12-26 23:16] VITALS: BP 120/76
[2024-12-27 01:46] LABS: Asialo-GM1 Antibody 25 IV (0-50); GD1a Antibody 10 IV (0-50); GD1b Antibodies 11 IV (0-50); GM1 Antibody 13 IV (0-50); GM2 Antibody 9 IV (0-50); GQ1b Antibodies 8 IV (0-50)
[2024-12-27 07:00] VITALS: BP 139/81
--- NOTE | 2024-12-27 07:28 | W.PN.HOSP.TC ---
Addendum entered and electronically signed by Tee Childers MD 12/27/24 15:15:
Seen and examined by me independently in collaboration with the medical secretary receptionist.
Lab data reviewed.
Addendum as below :
Remains afebrile. Not hypoxic. Hemodynamically stable.
Continued improvement in his strength and muscle symptoms. Ambulating better.
Tolerating diet without issue.
No shortness of breath or chest pain.
No dizziness.
Patient clinically improved. Continue with symptomatic support and therapies.
Mild transaminitis without GI symptoms noted. No hepatomegaly. Patient had normal LFTs since admission and went up to just today. Unclear if there is any relation to IVIG. Obtain abdominal ultrasound and repeat LFTs in AM. If no obvious
structural biliary track issue and if remains asymptomatic from GI standpoint will discharge him home tomorrow and follow LFTs as an outpatient.
Original Note:
Today's Communication/Plan
-
Recommendation for the PT, OT in future
Assessment / Plan
Assessment / Plan
34 yrs old Male with k/c/o lyme disease in the past presented with weakness of the lower limb which progressed to the upper limb now.
# Progressively increase in muscle weakness due to viral etiology:
-The nature of weakness is progressively increase from lower limb to upper limb involving neck muscles, along with fever, inflammation suspicious for infection source.
- Flu A pneumonia positive.
-Lyme disease Ig G, M serum shows negative.
-Creatinine Kinase is 82 within normal range.
-CRP 69 inflammatory marker is high.
-Serum Potassium 3.9 improved with 40 mEq potassium correction , Sodium 139 (N) comparing with 134 yesterday.
-Low Calcium 8.2;
-CBC:
Platelet is low 122 (l) WBC= 3.9 (l) Comparing from his presentation of yesterday around 7.1.
-Lumbar puncture, CSF analysis- no gram stain, viral growth indicates to rule out meningitis.
-AFB stain pending status
-Stopped the IV Immunoglobin started for 5 days ( DAY 3).
-EMG : 'both lower limbs and the left upper limb was unremarkable after correcting for cool lower limb temperatures (21 degrees centigrade)', within normal limits,excluding GBS
-Consulted speech therapy evaluation, OT, PT for tomorrow.
- MRI C/T spine and brain: w/ and w/o contrast normal
- Neurology recommends CBT for psychological component- by suspecting functional neurological disorder.
- Physiatry consulted with recommendation for OT to increase independence with ADLs, improve balance, coordination, endurance, strength, mobility, community reintegration, decreased burden of care on others and family education.�
�
DVT prophylaxis: Lovenax
Disposition: Home
Anticipated Discharge: Today
Subjective/Interval History
-
Date of Service: December 27, 2024
Patient is having improvement on his strength comparing from yesterday, he can walk now with rolling walker with one person support. And he is not experiencing chest pain, palpitation, dizziness while on walking.
Objective Data
-
Labs:
12/27/24 06:57
12/27/24 06:57
Laboratory Results
PT 15.6 Sec (11.4-14.6) H 12/24/24 09:29
INR 1.19 12/24/24 09:29
APTT 44.1 Sec (23.4-35.0) H 12/24/24 09:29
pH 7.54 (7.35-7.45) H 12/24/24 10:12
pCO2 27 mmHg (35-48) L 12/24/24 10:12
pO2 154 mmHg (83-108) H 12/24/24 10:12
HCO3 23.1 mmol/L (21-28) 12/24/24 10:12
Lactic Acid Cancelled 12/23/24 13:45
Total Bilirubin 0.7 mg/dl (0.2-1.3) 12/27/24 06:57
AST 138 U/L (17-59) H 12/27/24 06:57
ALT 132 U/L (0-50) H 12/27/24 06:57
Alkaline Phosphatase 60 U/L (38-126) 12/27/24 06:57
Troponin I Cancelled 12/23/24 10:01
Laboratory Results
Vital Signs:
Vital Signs
Temp Pulse Resp BP Pulse Ox
97.6 F 53 18 120/76 98
12/26/24 23:16 12/26/24 23:16 12/26/24 23:16 12/26/24 23:16 12/26/24 23:16
I&O
12/26/24 12/27/24 12/28/24
06:59 06:59 06:59
Intake Total 2600 / 2600 960 / 960
Output Total 1525 / 1525
Balance 1075 / 1075 960 / 960
Review of Systems
-
History Source: Patient
Respiratory: Reports Cough (posttussive cough )
Cardiac: Reports No Symptoms
Abdomen/GI: Reports No Symptoms
Genitourinary: Reports No Symptoms
Musculoskeletal: Reports Muscle Weakness
Skin: Reports No Symptoms
Neuro: Reports No Symptoms
Endocrine: Reports No Symptoms
Hematologic / Lymphatic: Reports No Symptoms
Allergy / Immunology: Reports No Symptoms
Physical Exam
-
General: Comfortable
HEENT: Normocephalic
Respiratory: Clear to Auscultation
Cardiac: Regular Rhythm and S1/S2
GI: Soft, Nontender and Nondistended
Genito-urinary: No Costovertebral Tender
Musculoskeletal: No Clubbing
Skin: Warm
Neuro: AO x 3
Hematologic / Lymphatic: No Lymphadenopathy
Psych: Calm
[2024-12-27 08:25] LABS: ALT (SGPT) 132 U/L (0-50); AST (SGOT) 138 U/L (17-59); Albumin 3.9 g/dl (3.5-5.0); Alkaline Phosphatase 60 U/L (38-126); Blood Urea Nitrogen 11 mg/dl (9-20); Calcium 8.5 mg/dl (8.4-10.2); Carbon Dioxide 27 mmol/L (22-30); Chloride 107 mmol/L (98-107); Estimated Creatinine Clearance > 125 ml/min; Glucose 89 mg/dl (70-99); Potassium 4.1 mmol/L (3.5-5.1); Sodium 139 mmol/L (135-145); Total Protein 7.5 g/dl (6.3-8.2); eGFR > 60.00
[2024-12-27 08:41] LABS: Hematocrit 39.6 % (39.0-52.0); Hemoglobin 13.3 g/dL (13.0-18.0); Mean Corp Hgb Conc. 33.6 g/dL (33.0-37.0); Mean Corpuscular Volume 82.3 fL (80.0-94.0); Platelet Count 157 10^3/uL (130-400); Red Cell Dist. Width 12.6 % (11.5-14.5)
[2024-12-27] MEDS: VITAMIN C 500 MG PO (08:45)
[2024-12-27 08:46] LABS: Influenza A (H5) Spec Source Resp Swab; Influenza A by NAAT Detected (Not Detected); Influenza H5 by NAAT Not Detected (Not Detected)
[2024-12-27 10:54] LABS: Nucleated Red Blood Cells % 0 % (-)
[2024-12-27] MEDS: TESSALON PERLES 200 MG PO ×2 (12:43→21:30)
[2024-12-27 12:52] LABS: West Nile Virus, IgM, CSF 0.05 IV (<=0.89)
[2024-12-27 13:10] VITALS: BP 130/82; PULSE 62; O2SAT 98
[2024-12-27 15:00] VITALS: BP 126/73
[2024-12-27] MEDS: LOVENOX 40 MG SC (17:31)
[2024-12-27] MEDS: TORADOL 15 MG IV (17:34)
--- NOTE | 2024-12-27 18:02 | PTCARENOTE ---
Pt c/o LUQ/epigastric abd pain and directly under chest. Toradol 15mg IV given. Dr. Perez up to see pt.
[2024-12-27 21:22] LABS: Albumin, CSF 14 mg/dL (0-35); Albumin, Serum 3676 mg/dL (3500-5200); IgG, CSF 2.0 mg/dL (0.0-6.0)
[2024-12-27] MEDS: TYLENOL 650 MG PO (21:30)
[2024-12-27 23:25] VITALS: BP 122/77
[2024-12-28] MEDS: ROBITUSSIN DM 10 ML PO (04:59)
[2024-12-28] MEDS: TORADOL 15 MG IV (04:59)
[2024-12-28 06:22] LABS: ALT (SGPT) 140 U/L (0-50); AST (SGOT) 110 U/L (17-59); Albumin 3.8 g/dl (3.5-5.0); Alkaline Phosphatase 57 U/L (38-126); Blood Urea Nitrogen 14 mg/dl (9-20); Calcium 8.6 mg/dl (8.4-10.2); Carbon Dioxide 26 mmol/L (22-30); Chloride 106 mmol/L (98-107); Estimated Creatinine Clearance > 125 ml/min; Glucose 89 mg/dl (70-99); Potassium 4.2 mmol/L (3.5-5.1); Sodium 138 mmol/L (135-145); Total Protein 7.5 g/dl (6.3-8.2); eGFR > 60.00
[2024-12-28] MEDS: VITAMIN C 500 MG PO (08:13)
[2024-12-28 08:35] VITALS: BP 119/75
--- NOTE | 2024-12-28 08:49 | W.PN.HOSP.TC ---
Addendum entered and electronically signed by Tee Childers MD 12/28/24 13:36:
Seen and examined by me independently in collaboration with the biomedical instrument technician.
Lab data and imaging data reviewed.
Addendum as below :
Case of acute influenza A infection with extreme fatigue , myalgias and weakness. Neurological evidence did not support GBS. IVIG was discontinued. Also initial CPK levels were normal and did not suggest any myositis. Patient was treated
symptomatically with gradual improvement. Currently ambulating by himself without help. Tolerating diet without any GI symptoms.
Mild transaminitis and CPK elevation noted unclear if related to IVIG infusion. Ultrasound abdomen shows asymptomatic cholelithiasis the possibility of hepatic hemangioma . Repeat ultrasound in 6 months to follow on the hemangioma.
Patient advised to repeat LFTs next week and follow with PCP.
Medically stable for discharge home with home PT.
[facility] paperwork filled for the patient.
Total of discharge 35 minutes
Original Note:
Today's Communication/Plan
-
Follow up with PCP within a week of discharge.
Assessment / Plan
Assessment / Plan
34 yrs old Male with k/c/o lyme disease in the past presented with weakness of the lower limb which progressed to the upper limb now.
# Progressively increase in muscle weakness due to viral etiology:
-The nature of weakness is progressively increase from lower limb to upper limb involving neck muscles, along with fever, inflammation suspicious for infection source.
- Flu A pneumonia positive.
-Lyme disease Ig G, M serum shows negative.
-Creatinine Kinase is 82 within normal range.
-CRP 69 inflammatory marker is high.
-Serum Potassium improved with 40 mEq potassium correction , Sodium 139 (N) comparing with 134 yesterday.
-Low Calcium 8.2;
-CBC:
Platelet is low 122 (l) WBC= 3.9 (l) Comparing from his presentation of yesterday around 7.1.
-Lumbar puncture, CSF analysis- no gram stain, viral growth indicates to rule out meningitis.
-AFB stain- negative.
-Stopped the IV Immunoglobin started for 5 days ( DAY 3).
-EMG : 'both lower limbs and the left upper limb was unremarkable after correcting for cool lower limb temperatures (21 degrees centigrade)', within normal limits,excluding GBS
-Consulted speech therapy evaluation, OT, PT for tomorrow.
- MRI C/T spine and brain: w/ and w/o contrast normal
- Neurology recommends CBT for psychological component- by suspecting functional neurological disorder.
- Physiatry consulted with recommendation for OT to increase independence with ADLs, improve balance, coordination, endurance, strength, mobility, community reintegration, decreased burden of care on others and family education.�
�
# Transaminitis:
- AST = 110 (h), ALT= 140 (H) high and
Abdomen USG: (12/28/24)
-Liver length is upper range of normal, measuring 18 cm.
-Focal well-defined echogenic lesion within the lateral right lobe of the liver, likely hemangioma. Consider follow-up ultrasound of the abdomen with attention to the liver in 6 months. Alternatively, MRI of the abdomen without and with contrast
could be performed.
- Liver length is 18.0 cm, with top normal considered 18.0 cm. In the lateral right lobe of the liver, there is a well-defined echogenic lesion which measures 2.5 x 2.4 x 2.0 cm, and corresponds to a subtle low-density lesion in this region of the
liver on CT angiography of December 23, 2024. This most likely represents a hemangioma. Follow-up ultrasound of the abdomen is recommended in 6 months to assess for stability.
DVT prophylaxis: Lovenax
Disposition: Home
Anticipated Discharge: Today
Subjective/Interval History
-
Date of Service: December 28, 2024
Patient is getting better,he can walk independently. He has occasional cough which is getting better with antitussives. He is not feeling weakness, shortness of breath, chest pain, nausea, vomiting, palpitation.
Objective Data
-
Labs:
12/27/24 06:57
12/28/24 04:36
Laboratory Results
PT 15.6 Sec (11.4-14.6) H 12/24/24 09:29
INR 1.19 12/24/24 09:29
APTT 44.1 Sec (23.4-35.0) H 12/24/24 09:29
pH 7.54 (7.35-7.45) H 12/24/24 10:12
pCO2 27 mmHg (35-48) L 12/24/24 10:12
pO2 154 mmHg (83-108) H 12/24/24 10:12
HCO3 23.1 mmol/L (21-28) 12/24/24 10:12
Lactic Acid Cancelled 12/23/24 13:45
Total Bilirubin 0.8 mg/dl (0.2-1.3) 12/28/24 04:36
AST 110 U/L (17-59) H 12/28/24 04:36
ALT 140 U/L (0-50) H 12/28/24 04:36
Alkaline Phosphatase 57 U/L (38-126) 12/28/24 04:36
Troponin I Cancelled 12/23/24 10:01
Laboratory Results
12/28/24
04:36
Sodium 138
Potassium 4.2
Chloride 106
Carbon Dioxide 26
BUN 14
Creatinine 0.7
Glucose 89
Calcium 8.6
Total Bilirubin 0.8
AST 110 H
ALT 140 H
Alkaline Phosphatase 57
Vital Signs:
Vital Signs
Temp Pulse Resp BP Pulse Ox
97.6 F 62 24 119/75 100
12/28/24 08:35 12/28/24 08:35 12/28/24 08:35 12/28/24 08:35 12/28/24 08:35
I&O
12/27/24 12/28/2425
06:59 06:59 06:59
Intake Total 960 / 960 960 / 960
Balance 960 / 960 960 / 960
Review of Systems
-
History Source: Patient
Constitutional: Reports No Symptoms
EENT: Reports No Symptoms Reported
Respiratory: Reports No Symptoms
Cardiac: Reports No Symptoms
Abdomen/GI: Reports No Symptoms
Genitourinary: Reports No Symptoms
Musculoskeletal: Reports No Symptoms
Skin: Reports No Symptoms
Neuro: Reports No Symptoms
Endocrine: Reports No Symptoms
Hematologic / Lymphatic: Reports No Symptoms
Allergy / Immunology: Reports No Symptoms
Psych: Reports Other
Physical Exam
-
General: Comfortable
HEENT: Moist Mucous Membranes
Respiratory: Clear to Auscultation
Cardiac: Regular Rhythm and S1/S2
GI: Soft, Nontender and Nondistended
Genito-urinary: No Costovertebral Tender
Skin: Warm
Neuro: AO x 3
Hematologic / Lymphatic: No Lymphadenopathy
Psych: Calm
[2024-12-28] MEDS: TYLENOL 650 MG PO (09:21)
[2024-12-28] MEDS: TESSALON PERLES 200 MG PO (09:22)
--- NOTE | 2024-12-28 12:18 | W.DCSUMMARY ---
Discharge Summary
Discharge Data
Date of Admission: 12/23/24
Date of Discharge: 12/28/24
Total time spent discharging patient (in min): 20 mins
-
Pending Results: No
Hospital Course
Discharging Physician : Dr Russ Navarro
Tee Nolasco
Disposition : Home
Primary care physician : Dr Kory Marks
Principal Discharge diagnosis : Influenza A induced severe muscle weakness, fatigue
Chronic Discharge diagnosis : Transaminitis
Hospital Course : On 12/23 34-year-old male with history of Lyme disease who presented with fevers, chills, weakness and fatigue, difficulty ambulating, and pain of multiple joints, as well as excruciating neck pain, and cough. His family was at
bedside and notes that he was normally very physically active. He complained of pain with urination. He noted that over 2 weeks ago he took a 5-day steroid course for swelling in his left knee, and he tested flu A positive and his [id number]
son is sick with fevers and ear infections, which he may have contracted from daycare. He denied any other sick contacts. Patient complained of pain with any physical movement during the exam. Patient appeared to be in distress from neck pain,
anicteric, no murmur, lungs : clear on auscultation, abdomen soft/NT/ND/NABS, cranial nerves tested and intact, 4-5 out of 5 strength in bilateral arms, 3 out of 5 strength in bilateral legs. Blood work which included AFB, Lumbar puncture done and
results were pending. Meanwhile neurology were consulted for the abrupt onset of weakness which was progressive in nature, tachypnea and patient was shifted to ICU, with telemetry monitoring and concerned for Guillain Levasy Syndrome the patient was
started on IV Immunoglobin for 5 days course. CRP 69 inflammatory marker is high. The pending results arrived which indicated Lumbar puncture, CSF analysis- no gram stain, viral growth indicates to rule out meningitis, AFB stain were negative. MRI
Scan brain, spine reported normal impression and speech therapy evaluation, OT, PT were consulted. EMG ordered to rule out peripheral causes for the weakness like Guillain-Levasy syndrome, tick bite induced, transverse myelitis which resulted with
normal finding. On day 3 IV Immunoglobin were discontinued by given normal lab work up findings and suggested for outpatient psychological evaluation for Cognitive Behavioral Therapy. Patient was transferred to [facility] with room air and close
monitoring. He was improved with Physiotherapy, and Physiatry recommended for OT to increase independence with ADLs, improve balance, coordination, endurance, strength, mobility, community reintegration, decreased burden of care on others and
family education.�While on discharge patient was stable and incidental finding of transaminitis and USG abdominal finding of hepatic hemangioma was discussed with the patient and advised to do a future follow up with PCP in a week of discharge.
Future close follow up within a 6 months for repeat USG recommended.
Patient's , Leslie, and mother, Haleigh, both present at bedside and all questions were answered throughout admission course. FMLA paper filled on the discharge time.
Important imaging findings :
# USG Abdomen on 12/28/24: Focal well-defined echogenic lesion within the lateral right lobe of the liver, likely hemangioma. Consider follow-up ultrasound of the abdomen with attention to the liver in 6 months. Alternatively, MRI of the abdomen
without and with contrast could be performed.
# Thoracic, Cervical spine, Brain MRI: no abnormalities noted.
Procedure findings :
# Lumbar Puncture on 12/23/24 : An appropriate skin entry site to access the lumbar thecal sac was marked at the [id number]. 10 cc of 2% lidocaine was administered for local anesthesia. A 22 gauge Sprotte spinal needle was advanced into the thecal sac
with recovery of clear cerebrospinal fluid. 11 mL of cerebrospinal fluid were collected in 4 tubes. Samples were sent to the laboratory for analysis. The needle was removed and a sterile dressing was applied. There were no immediate complications.
# Lumbar spinal fluid tapping showed negative for pathogens.
Discharge Plan
-
Patient Disposition: Home (Routine Discharge)
Discharge Diagnosis/Procedures: Influenza A pneumonia induced muscle weakness
Condition: Good
Diet: No restrictions
Activity: As tolerated
Driving Restrictions: As prior to admission
Bathing Restrictions: None
Blood Work: Repeat CMP in 1 week with PCP
Other Services: PT
Referrals:
Kory Marks DO [Family Provider, [facility]] - in less than 1 week
Additional Discharge Medication Instructions: -Follow physical therapy at home for 2-3 sessions for a week as suggested by PT.
- follow up with PCP within a week of discharge.
- Repeat CMP in future with PCP.
- Repeat USG Abdomen for his Hepatic hemangioma follow up in the future after 6 months .
Prescriptions:
Continued
glucosamine sulfate [Glucosamine] 500 mg Tablet
500 mg PO DAILY
ascorbic acid (vitamin C) [Vitamin C] 500 mg Tablet
500 mg PO DAILY
lysine 500 mg Tablet
500 mg PO DAILY
Discharge Orders:
Discharge Patient (As Directed); Ordered 12/28/24
Ordered By: Russ Navarro
Discharge Date and Time
Discharge Date/Time: 12/28/24 14:08
Print Language: SPANISH
[2024-12-28 13:45] VITALS: BP 122/74
--- NOTE | 2024-12-28 14:33 | CM ---
Patient for d/c today
Therapy was recommending home PT and poss RW. Spoke w/ patient, reports he's doing better and walking without issues, declined home PT and RW at this time
Spouse transport home
Plan: Home, no needs
== END 2024-12-28 14:08 | disposition home or self-care (01) | DRG 865 ==
LOC: 4 WEST ACU 13:22
PROVIDERS: Radiology Diagnostic Radiology; Registered Nurse; ADMITTING PHYSICIAN Internal Medicine; ATTENDING PHYSICIAN Internal Medicine; CONSULT PHYSICIAN Internal Medicine Critical Care Medicine; CONSULT PHYSICIAN Physical Medicine & Rehabilitation; CONSULT PHYSICIAN Psychiatry & Neurology Neurology; EMERGENCY PHYSICIAN Emergency Medicine; FAMILY PHYSICIAN Family Medicine
PROC: 30233S1 Transfusion of Nonautologous Globulin into Peripheral Vein, Percutaneous Approach (ICD-10-PCS; 2024-12-23)
PROC: 009U3ZX Drainage of Spinal Canal, Percutaneous Approach, Diagnostic (ICD-10-PCS; 2024-12-23)
PROC: 5A0935A Assistance with Respiratory Ventilation, Less than 24 Consecutive Hours, High Flow/Velocity Cannula (ICD-10-PCS; 2024-12-23)
DX: J10.89 Influenza due to other identified influenza virus with other manifestations (principal); J10.01 Influenza due to other identified influenza virus with the same other identified influenza virus pneumonia; J96.01 Acute respiratory failure with hypoxia; J98.11 Atelectasis; E87.3 Alkalosis; E87.1 Hypo-osmolality and hyponatremia; G37.3 Acute transverse myelitis in demyelinating disease of central nervous system; G61.0 Guillain-Barre syndrome; F44.4 Conversion disorder with motor symptom or deficit; R74.01 Elevation of levels of liver transaminase levels; R29.2 Abnormal reflex; E83.51 Hypocalcemia; R26.2 Difficulty in walking, not elsewhere classified; D18.03 Hemangioma of intra-abdominal structures; R42 Dizziness and giddiness; R30.9 Painful micturition, unspecified; E87.6 Hypokalemia; Z87.891 Personal history of nicotine dependence; Z86.19 Personal history of other infectious and parasitic diseases; Z11.52 Encounter for screening for COVID-19
CPT/HCPCS: 36600; 62328; 70030; 70553; 71046; 71275; 72156; 72157; 76700; 80053; 81003; 81015; 82040; 82042; 82550; 82784; 82787; 82805; 82945; 82962; 83036; 83516; 83605; 83735; 83880; 83916; 84157; 85025; 85610; 85652; 85730; 86140; 86618; 86788; 87015; 87040; 87070; 87116; 87205; 87483; 87502; 87811; 88108; 89051; 93005; 95886; 95910; 96361; 96365; 96366; 96375; 97110; 97116; 97163; 97167; 97530; 97535; 99285; A9575; J1569; Q9967